=== PATIENT | female | born 1985 | race Caucasian/White ===

== ENCOUNTER 2024-09-13 09:24 | Outpatient (AMB) | payer MEDICAID, SELFPAY ==
--- NOTE | 2024-09-13 09:26 | AMB.OBINITIA ---
Vital Signs 09/13/24 09:50 Height 1.59 m Height Method Stated Weight 82.667 kg Weight Measurement Method Standing Scale BMI 32.5 BP 120/78 Blood Pressure Source Automatic Cuff Blood Pressure Location Left Upper Arm Position Sitting Respiration 18 Pulse 81 Pulse Source Monitor Temp 97.2 F Temp Source Oral Pulse Oximetry (%) 99 Oxygen Delivery Method Room Air Allergies/Home Meds Allergies & Medications Allergies No Known Allergies Allergy (Unknown, Verified 09/13/24 09:52) Medication Reconciliation prenat.vits,rohan,iem-mktm-vqztr 1 tab PO QDAY 01/02/21 [History Confirmed 09/13/24] vitamins with calcium no.72-iron 29 mg-folic acid 1 mg tablet ( Plus) 1 tab PO QAM 90 days #90 tabs 09/16/24 [Rx] Intake Visit Data Collection New Patient or Established: New Patient not seen in past 3 years at [facility] (considered New) Reason for Visit:: confirmation Seen by Clinical Staff ONLY (RN/MA): No Tipping Machine Operator Automatic Required: Yes Tipping Machine Operator Automatic's name/title: ANDRE BERMUDEZ / DENTAL CERAMIST Do You Feel Safe at Home: Yes Authorities Contacted: N/A PCP or OBGYN visit in last 3 months: No Hx Now: Yes Are you currently on any form of Control: No Last menstrual period: 07/08/24 Pain Present Currently: No Pain Scale Used: Mccarthy-Peng/Numerical Pain scale:: 0 Smoking Status Smoking Status: Never smoker Questionnaires Covid-19 Vaccine Questionnaire Has patient been vacinated for Covid-19 Have you been vacinated for Covid-19: No PHQ-9 PHQ-2 Over the last 2 weeks, how often have you been bothered by any of the following problems? 1. Little interest or pleasure in doing things: not at all 2. Feeling down, depressed, or hopeless: not at all Total score: 0 PHQ-9 3. Trouble falling or staying asleep, or sleeping too much: Not at all 4. Feeling tired or having little energy: Not at all 5. Poor appetite or overeating: Not at all 6. Feeling bad about yourself - or that you are a failure or have let yourself or your family down: Not at all 7. Trouble concentrating on things, such as reading the newspaper or watching television: Not at all 8. Moving or speaking so slowly that other people could have noticed? - Or the opposite - being so fidgety or restless that you have been moving around a lot more than usual: not at all 9. Thoughts that you would be better off or of hurting yourself in some way: Not at all Total score: 0 If you checked off any problems, how difficult have these problems made it for you to do your work, take care of things at home, or get along with other people?: not difficult at all Source: Developed by Drs. Spike Rogers, Nancy Rogers, Corbin Bean and colleagues, with an educational robert from [employer]. Depression screen completed yes Social History Living Situation History Marital Status: Lives With: Family Housing: House Tobacco History Smoking Status: Never smoker Alcohol History Alcohol Intake: Never Domestic Abuse History Do You Feel Safe at Home: Yes Past Medical History Past Medical History Have you ever been diagnosed with any of the following: History of Present Illness HPI Narrative Nathalie Elizabeth presents for her first visit. She reports her last menstrual period was on June 07, placing her at approximately 14 weeks gestation. This is her fifth , with four previous vaginal deliveries and no history of miscarriages. The patient denies experiencing any nausea, vomiting, bleeding, or spotting during this . She has not reported any other symptoms or concerns related to her current . Mrs. Elizabeth's previous pregnancies were uncomplicated, resulting in vaginal deliveries. Obstetric History - GTPAL: G5 T4 L4 - Current : - Gestational age: Approximately 14 weeks based on last menstrual period in May - No current complaints of nausea, vomiting, or bleeding - history: - 4 previous vaginal deliveries, all resulting in living children Medications and Supplements - vitamins Social History - Children: Patient has 4 children Review of Systems Gastrointestinal: Negative for nausea, vomiting. Genitourinary: Negative for bleeding, spotting. OB Ultrasound OB Ultrasound Ultrasound technique: transabdominal Gestational sac assessment: Presence, location, size, shape: Bedside ultrasound: Gestational sac visualized, no parts seen OB Initial Visit OB Flowsheet OB Flowsheet Initial Weight: Not Recorded Date <del>?</del> EGA Weight Edema CTX Effacement BP Fundal ht Pres Dilation Effacement Station Visit Note Alb Glu FHR Mov 09/13/24 <del>?</del> 14w 0d 82.667 kg 120/78 Nathalie Elizabeth, , at approximately 14 weeks gestation by LMP 06/07/2024, presents for initial visit. No N/V/B. No KAISER/VS, Epig/RUQ pain. Reports no current symptoms or complications. Denies nausea, vomiting, spotting, or bleeding. Obstetric history notable for 4 prior uncomplicated vaginal deliveries, all resulting in living children. Currently taking vitamins. Bedside ultrasound: Gestational sac visualized; parts not seen. ? Assessment & Plan: Nathalie Elizabeth is a at approximately 14w0d gestation presenting for new OB visit. Bedside ultrasound concerning for intrauterine of uncertain viability. Intrauterine of uncertain viability ?Refer for comprehensive OB ultrasound with possible transvaginal imaging ?Defer routine OB labs pending ultrasound findings ?Continue vitamins ?Follow up after ultrasound to discuss results and determine further management 145 Menstrual History Menstrual reliability: definite Flow: normal Menstrual regularity: regular Monthly: Yes Age at menarche: 12 On control pills at conception: No OB History : 5 Para: 4 Hx # Pregnancies: 0 Hx Total # of Abortions (Spontaneous & Elective): 0 # of Living Children: 0 Delivery History 1st : Child's name: NA date: 12/11/06 sex: male Delivery type: vaginal History of depression before or after : No 2nd : Child's name: NA date: 04/17/08 sex: female Delivery type: vaginal History of depression before or after : No 3rd : Child's name: NA date: 08/06/14 sex: female Delivery type: vaginal History of depression before or after : No 4th : Child's name: NA date: 02/09/21 sex: female Delivery type: vaginal History of depression before or after : No Infection History & Risk Evaluation History of STDs: none HIV risk evaluation: low risk Hepatitis B risk evaluation: low risk Patient or partner has history of Genital Herpes: No Varicella/chicken pox status: immunized Genetic Screening & History Genetic Screening/Teratology Counseling - Includes patient, baby's father, or anyone in either family with: 1. Patient's age 35 years or older as of estimated date of delivery: No 2. Thalassemia (Hungarian, Chinese, Mediterranean, or Background); MCV less than 80: No 3. Neural Tube Defect (Meningomyelocele, Spina Bifida, or Anencephaly): No 4. Congenital Heart Defect: No 5. Down Syndrome: No 6. Asif-Sachs (Ashkenazi Latter Day, Cajun, Tamazight [place]): No 7. Annelise Disease (Ashkenazi Latter Day): No 8. Familial Dysautonomia (Ashkenazi Latter Day): No 9. Sickle Cell Disease or Trait (): No 10. Hemophilia or other blood disorders: No 11. Muscular Dystrophy: No 12. Cystic Fibrosis: No 13. Luis Fernando's Chorea: No 14. Mental Retardation/Autism: No 15. Other inherited genetic or chromosomal disorder: No 16. Maternal Metabolic Disorder (EG,TYPE 1 Diabetes, PKU): No 17. Patient or baby's father had a child with defects not listed above: No 18. Recurrent loss or a stillbirth: No 19. Medications (including supplements, vitamins, herbs or otc drugs)/illicit/recreational drugs/alcohol since last menstrual period: No 20. Any other: No Infection History 1. Live with someone with TB or exposed to TB: No 2. Rash or viral illness since last menstrual period: No 3. Hepatitis B,C: No Other (see comments) Source: [employer] Assessment & Plan Diagnosis / Problem List (1) Advanced maternal age (AMA) in : Status: Acute Plan Nathalie Elizabeth, , presents for initial visit with last menstrual period reported as May, estimated gestational age 14 weeks. Intrauterine of uncertain viability Assessment: Patient reports last menstrual period in May, consistent with 14 weeks gestation. However, bedside ultrasound revealed a gestational sac without visible parts. This discrepancy raises concern for potential complications such as missed or early loss. A more detailed ultrasound examination is necessary to confirm gestational age and assess viability. Plan: - Refer for comprehensive obstetric ultrasound, including possible transvaginal imaging for better visualization - Defer blood tests pending ultrasound results - Continue vitamins - Follow up after ultrasound to discuss results and plan further management Addendum: Patient was given ORDERS DUE TO NONVISUALIZATION OF GESTATIONAL SAC NOTED ABOVE Office Procedures OB Clinic LOC & Office Proc's Nursing/Assessment Patient Status: Established Patient OB Clinic Nursing Assessment: BP Monitoring, Medication Reconciliation, Update PMH in EMR and Vital Signs OB Clinic Coordination of Care: Consent,records obtained, informed consent, Education Simp Pt/Fam, Lab and Imaging orders and Staff clarify orders Special Needs: Heart tones Established Patient Charge Established Patient Point Assignment: 120 Established Patient Point Charge: EP Level 4 (120-155) Bedside Ultrasounds US Transabdominal <14 weeks at bedside: Yes
[2024-09-13 09:50] VITALS: BP 120/78; PULSE 81; RESP 18; TEMP 36.2; O2SAT 99; BMI 32.5
== END 2024-09-13 10:25 | disposition home or self-care (01) ==
LOC: HODSOBC 09:24
PROVIDERS: PCP Family Medicine; Referring Provider Family Medicine; Supervising Provider Obstetrics & Gynecology; Visit Provider Obstetrics & Gynecology
DX: O09.522 Supervision of elderly multigravida, second trimester (principal); Z3A.14 14 weeks gestation of pregnancy
CPT/HCPCS: 76801; 99214; G0463

== ENCOUNTER → 2024-09-16 | Outpatient (CLI) | payer MEDICAID, SELFPAY ==
--- NOTE | 2024-09-16 09:59 | XR_ITS ---
Examination: Complete OB ultrasound greater than 14 weeks Date and time of exam: September 16, 2024 1017 hours INDICATIONS: Unknown size and dates Findings: Viable intrauterine single fetus with single amniotic sac presentation variable Cardiac motion 155 BPM Placenta fundal grade 1 Umbilical cord insertion seen Amniotic fluid index 7 cm Cervix 5.0 cm Right ovary 2.8 cm arterial flow Left ovary 3.7 cm arterial flow. Composite estimated gestational age based on BPD, head circumference, abdominal circumference, femur length is 15 weeks 0 days Estimated weight 118 g. Survey of intracranial anatomy, spinal anatomy, abdominal anatomy, four-chamber heart performed with no abnormalities identified. Impression: Viable intrauterine gestation variable presentation Estimated gestational age 15 weeks 0 days.
== END | disposition home or self-care (01) ==
PROVIDERS: PCP Family Medicine; Referring Provider Obstetrics & Gynecology; Visit Provider Obstetrics & Gynecology
DX: O20.0 Threatened abortion (principal); Z3A.15 15 weeks gestation of pregnancy
CPT/HCPCS: 76805

== ENCOUNTER 2024-09-27 08:26 | Outpatient (AMB) | payer MEDICAID, SELFPAY ==
[2024-09-27 08:37] VITALS: BP 113/77; PULSE 77; RESP 14; TEMP 36.4; O2SAT 98; BMI 33.3
--- NOTE | 2024-09-27 08:37 | AMB.OBVISIT ---
Vital Signs 09/27/24 08:37 Height 1.59 m Height Method Stated Weight 84.085 kg Weight Measurement Method Standing Scale BMI 33.3 BP 113/77 Blood Pressure Source Automatic Cuff Blood Pressure Location Left Upper Arm Position Sitting Respiration 14 Pulse 77 Pulse Source Monitor Temp 97.6 F Temp Source Oral Pulse Oximetry (%) 98 Oxygen Delivery Method Room Air Allergies/Home Meds Allergies & Medications Allergies No Known Allergies Allergy (Unknown, Verified 09/27/24 08:38) Medication Reconciliation vitamins with calcium no.72-iron 29 mg-folic acid 1 mg tablet ( Plus) 1 tab PO QAM 90 days #90 tabs 09/16/24 [Rx Confirmed 09/27/24] Intake Visit Data Collection New Patient or Established: Established Patient (seen at [facility] within 3 years) Reason for Visit:: - Follow-up of ultrasound Seen by Clinical Staff ONLY (RN/MA): No Electrical Contacts Adjuster Required: Yes Electrical Contacts Adjuster's name/title: Eve Little Do You Feel Safe at Home: Yes Authorities Contacted: N/A PCP or OBGYN visit in last 3 months: Yes Hx Now: Yes Are you currently on any form of Control: No Pain Present Currently: No Pain Scale Used: Mccarthy-Peng/Numerical Pain scale:: 0 Smoking Status Smoking Status: Never smoker Questionnaires Covid-19 Vaccine Questionnaire Has patient been vacinated for Covid-19 Have you been vacinated for Covid-19: Yes PHQ-9 PHQ-2 Over the last 2 weeks, how often have you been bothered by any of the following problems? 1. Little interest or pleasure in doing things: not at all 2. Feeling down, depressed, or hopeless: not at all Total score: 0 PHQ-9 3. Trouble falling or staying asleep, or sleeping too much: Not at all 4. Feeling tired or having little energy: Not at all 5. Poor appetite or overeating: Not at all 6. Feeling bad about yourself - or that you are a failure or have let yourself or your family down: Not at all 7. Trouble concentrating on things, such as reading the newspaper or watching television: Not at all 8. Moving or speaking so slowly that other people could have noticed? - Or the opposite - being so fidgety or restless that you have been moving around a lot more than usual: not at all 9. Thoughts that you would be better off or of hurting yourself in some way: Not at all Total score: 0 Source: Developed by Drs. Spike Rogers, Nancy Rogers, Corbin Bean and colleagues, with an educational robert from [employer]. Depression screen completed yes Social History Living Situation History Lives With: Family Housing: House Tobacco History Smoking Status: Never smoker Alcohol History Alcohol Intake: Never Domestic Abuse History Do You Feel Safe at Home: Yes Past Medical History Past Medical History Have you ever been diagnosed with any of the following: History of Present Illness HPI Narrative - Nathalie Tomlinson is a 39-year-old 5 para 4 patient presenting for follow-up of an ultrasound performed on 09/16/2024. - She had an initial OB visit where visualization was poor, necessitating a referral for an ultrasound in the radiology department. - Patient denies any other specific complaints or symptoms. No contractions/ LOF/VB No KAISER/VC/RUQ/Epig pain Care OB Visit Log OB Flowsheet Initial Weight: Not Recorded Date <del>?</del> EGA Weight Edema CTX Effacement BP Fundal ht Pres Dilation Effacement Station Visit Note Alb Glu FHR Mov 09/13/24 <del>?</del> 14w 0d 82.667 kg 120/78 Nathalie Elizabeth, , at approximately 14 weeks gestation by LMP 06/07/2024, presents for initial visit. No N/V/B. No KAISER/VS, Epig/RUQ pain. Reports no current symptoms or complications. Denies nausea, vomiting, spotting, or bleeding. Obstetric history notable for 4 prior uncomplicated vaginal deliveries, all resulting in living children. Currently taking vitamins. Bedside ultrasound: Gestational sac visualized; parts not seen. ? Assessment & Plan: Nathalie Elizabeht is a at approximately 14w0d gestation presenting for new OB visit. Bedside ultrasound concerning for intrauterine of uncertain viability. Intrauterine of uncertain viability ?Refer for comprehensive OB ultrasound with possible transvaginal imaging ?Defer routine OB labs pending ultrasound findings ?Continue vitamins ?Follow up after ultrasound to discuss results and determine further management 145 09/27/24 <del>?</del> 16w 0d 84.085 kg 113/77 Nathalie Tomlinson, a 39-year-old at approximately 15 weeks gestation, presents for follow-up after a radiology department ultrasound performed on 09/16/2024. Previous poor visualization prompted the referral. She denies any current complaints, including contractions, headaches, visual changes, or abdominal pain. The ultrasound confirmed a viable single intrauterine with normal cardiac activity (FHR 155 bpm), ALVAREZ of 7, fundal placenta (grade 1), cervix measuring 5 cm, and both ovaries visualized with axial flow. Estimated weight was 118 grams. Plan: Order comprehensive labs, including genetic screening and gender determination Prescribe -safe allergy medication for allergic rhinitis Schedule next routine follow-up in one month Order routine ultrasound at [facility] Patient to return today for blood draw and lab collection 155 active STEFANIA Calculator Estimated Delivery Date Method Current WG Current Estimate 03/14/25 LMP (Certain) 16w 2d Exam General General Appearance: alert, in no apparent distress and healthy appearing Head Head exam: atraumatic Neck Neck exam: Present normal inspection and trachea midline Chest Chest inspection: Present normal inspection and symmetric chest wall rise External exam: Present normal external exam; Absent tenderness Neuro Neurological exam: Present oriented X3 Psych Psychiatric exam: Present normal affect and normal mood Assessment & Plan Diagnosis / Problem List (1) Supervision of high risk , unspecified, first trimester: Status: Acute (2) Advanced maternal age (AMA) in : Status: Acute Plan Problem List - , single intrauterine - Allergic rhinitis Assessment - Viable single fetus at 15 weeks gestation based on ultrasound measurements - Normal cardiac activity with heart rate of 155 bpm - Single amniotic sac with ALVAREZ of 7 - Fundal placenta, grade 1 - Cervix measuring 5 cm - Right ovary 2.8 cm with axial flow - Left ovary 3.7 cm with axial flow - Estimated weight 118 grams Plan - Perform all labs, including genetics test - Prescribe allergy medication (noted as safe for ) - Schedule follow-up appointment in one month - Order routine ultrasound at [facility] - Patient to return for blood draw today for lab tests, including gender determination Educated the patient on labor signs, including regular contractions, lower back pain, and changes in vaginal discharge. Advised avoiding heavy lifting and getting adequate rest. Instructed to contact the office immediately if any signs occur. Discussed the importance of a balanced diet rich in folic acid, iron, and calcium, and provided a list of recommended and to-avoid foods. Emphasized avoiding high-sugar foods to reduce gestational diabetes risk. Encouraged hydration and frequent, small meals for energy.. Office Procedures OB Clinic LOC & Office Proc's Nursing/Assessment Patient Status: Established Patient OB Clinic Nursing Assessment: Medication Reconciliation, Update PMH in EMR and Vital Signs OB Clinic Coordination of Care: AMA, Complex Care and Chronic Disease 1-5, Consent,records obtained, informed consent, Education Simp Pt/Fam, Lab and Imaging orders, Results/Orders obtained and Staff clarify orders Special Needs: Heart tones Established Patient Charge Established Patient Point Assignment: 155 Established Patient Point Charge: EP Level 4 (120-155)
== END 2024-09-27 08:55 | disposition home or self-care (01) ==
LOC: HODSOBC 08:26
PROVIDERS: PCP Family Medicine; Referring Provider Family Medicine; Supervising Provider Obstetrics & Gynecology; Visit Provider Obstetrics & Gynecology
DX: O09.522 Supervision of elderly multigravida, second trimester (principal); Z3A.16 16 weeks gestation of pregnancy; O09.892 Supervision of other high risk pregnancies, second trimester; O99.512 Diseases of the respiratory system complicating pregnancy, second trimester; J30.9 Allergic rhinitis, unspecified
CPT/HCPCS: 99214; G0463

== ENCOUNTER 2024-10-25 10:03 | Outpatient (AMB) | payer MEDICAID, SELFPAY ==
--- NOTE | 2024-10-25 10:08 | AMB.OBVISIT ---
Vital Signs 10/25/24 10:09 Height 1.59 m Height Method Stated Weight 88.904 kg Weight Measurement Method Standing Scale BMI 35.2 BP 114/75 Blood Pressure Source Automatic Cuff Blood Pressure Location Right Upper Arm Position Sitting Respiration 16 Pulse 88 Pulse Source Monitor Temp 97.8 F Temp Source Oral Pulse Oximetry (%) 97 Oxygen Delivery Method Room Air Allergies/Home Meds Allergies & Medications Allergies No Known Allergies Allergy (Unknown, Verified 10/25/24 10:11) Medication Reconciliation vitamins with calcium no.72-iron 29 mg-folic acid 1 mg tablet ( Plus) 1 tab PO QAM 90 days #90 tabs 09/16/24 [Rx Confirmed 10/25/24] Intake Visit Data Collection New Patient or Established: Established Patient (seen at [facility] within 3 years) Reason for Visit:: CARE Seen by Clinical Staff ONLY (RN/MA): No General Scrap Worker Required: Yes General Scrap Worker's name/title: ANDRE BERMUDEZ Do You Feel Safe at Home: Yes Authorities Contacted: N/A PCP or OBGYN visit in last 3 months: Yes Hx Now: Yes Are you currently on any form of Control: No Pain Present Currently: No Pain Scale Used: Mccarthy-Peng/Numerical Pain scale:: 0 Smoking Status Smoking Status: Never smoker Questionnaires Covid-19 Vaccine Questionnaire Has patient been vacinated for Covid-19 Have you been vacinated for Covid-19: Yes PHQ-9 PHQ-2 Over the last 2 weeks, how often have you been bothered by any of the following problems? 1. Little interest or pleasure in doing things: not at all 2. Feeling down, depressed, or hopeless: not at all Total score: 0 PHQ-9 3. Trouble falling or staying asleep, or sleeping too much: Not at all 4. Feeling tired or having little energy: Not at all 5. Poor appetite or overeating: Not at all 6. Feeling bad about yourself - or that you are a failure or have let yourself or your family down: Not at all 7. Trouble concentrating on things, such as reading the newspaper or watching television: Not at all 8. Moving or speaking so slowly that other people could have noticed? - Or the opposite - being so fidgety or restless that you have been moving around a lot more than usual: not at all 9. Thoughts that you would be better off or of hurting yourself in some way: Not at all Total score: 0 Source: Developed by Drs. Spike Rogers, Nancy Rogers, Corbin Bean and colleagues, with an educational robert from [employer]. Depression screen completed yes Social History Living Situation History Lives With: Family Housing: House Tobacco History Smoking Status: Never smoker Alcohol History Alcohol Intake: Never Domestic Abuse History Do You Feel Safe at Home: Yes History of Present Illness HPI Narrative Nathalie Tomlinson, , presents for routine visit at 20 weeks and 0 days gestation. No contractions, LOF, VB and reports good FM. Denies KAISER, VC, and epigastric pain. - Nathalie Tomlinson is a 39-year-old 5 para 4 presenting for a visit at 20 weeks and 0 days gestation. - Patient has a history of gestational diabetes in her last . - She reports experiencing some bleeding recently: - Occurred approximately one week ago (around October 18, 2024) - Described as a little bit of bleeding here and there - An ultrasound was performed at that time - Patient is awaiting an [facility] ultrasound with Dr. Lee in [place]. - No other specific complaints or symptoms reported during this visit. Care OB Visit Log OB Flowsheet Initial Weight: Not Recorded Date <del>?</del> EGA Weight BP Alb Glu CTX Pres Fundal ht FHR Mov Dilation Station Effacement Hx Notes Visit Note 09/13/24 <del>?</del> 14w 0d 82.667 kg 120/78 145 Nathalie Elizabeth, , at approximately 14 weeks gestation by LMP 06/07/2024, presents for initial visit. No N/V/B. No KAISER/VS, Epig/RUQ pain. Reports no current symptoms or complications. Denies nausea, vomiting, spotting, or bleeding. Obstetric history notable for 4 prior uncomplicated vaginal deliveries, all resulting in living children. Currently taking vitamins. Bedside ultrasound: Gestational sac visualized; parts not seen. ? Assessment & Plan: Nathalie Elizabeth is a at approximately 14w0d gestation presenting for new OB visit. Bedside ultrasound concerning for intrauterine of uncertain viability. Intrauterine of uncertain viability ?Refer for comprehensive OB ultrasound with possible transvaginal imaging ?Defer routine OB labs pending ultrasound findings ?Continue vitamins ?Follow up after ultrasound to discuss results and determine further management 09/27/24 <del>?</del> 16w 0d 84.085 kg 113/77 155 active Nathalie Tomlinson, a 39-year-old at approximately 15 weeks gestation, presents for follow-up after a radiology department ultrasound performed on 09/16/2024. Previous poor visualization prompted the referral. She denies any current complaints, including contractions, headaches, visual changes, or abdominal pain. The ultrasound confirmed a viable single intrauterine with normal cardiac activity (FHR 155 bpm), ALVAREZ of 7, fundal placenta (grade 1), cervix measuring 5 cm, and both ovaries visualized with axial flow. Estimated weight was 118 grams. Plan: Order comprehensive labs, including genetic screening and gender determination Prescribe -safe allergy medication for allergic rhinitis Schedule next routine follow-up in one month Order routine ultrasound at [facility] in [place] Patient to return today for blood draw and lab collection 10/25/24 <del>?</del> 20w 0d 88.904 kg 114/75 at 20w0d, presents for routine care. Reports recent light bleeding ~1 week ago, no recurrence since. No CTX/LOF/VB today; good FM. Denies KAISER/VC/epigastric pain. PMH notable for GDM in prior . Awaiting MFM scan with Dr. Lee in [place]. FHT 143?147 bpm today, WNL. Plan: Ordered 1-hr glucose test (patient to fast 8 hrs), advised pelvic rest (no intercourse, no heavy lifting), increase hydration. Follow up in 4 weeks. Will review MFM results once available. Counseled on labor and preeclampsia warning signs; encouraged movement monitoring and routine care adherence. STEFANIA Calculator Estimated Delivery Date Method Current WG Current Estimate 03/14/25 LMP (Certain) 22w 1d Exam General General Appearance: alert, in no apparent distress and healthy appearing Head Head exam: atraumatic Neck Neck exam: Present normal inspection and trachea midline Chest Chest inspection: Present normal inspection and symmetric chest wall rise External exam: Present normal external exam; Absent tenderness Neuro Neurological exam: Present oriented X3 Psych Psychiatric exam: Present normal affect and normal mood Office Procedures OB Clinic LOC & Office Proc's Nursing/Assessment Patient Status: Established Patient OB Clinic Nursing Assessment: Medication Reconciliation, Update PMH in EMR and Vital Signs OB Clinic Coordination of Care: Complex Care and Chronic Disease 1-5, Consent,records obtained, informed consent, Education Simp Pt/Fam, Lab and Imaging orders, Results/Orders obtained and Staff clarify orders Special Needs: Heart tones Established Patient Charge Established Patient Point Assignment: 135 Established Patient Point Charge: EP Level 4 (120-155) Assessment & Plan Diagnosis / Problem List (1) Supervision of high risk , unspecified, second trimester: Status: Acute (2) Advanced maternal age (AMA) in : Status: Acute Plan Problem List - , 20 weeks and 0 days - Gestational diabetes in previous - Vaginal bleeding in Assessment 39-year-old at 20 weeks 0 days gestation presenting for routine visit. Patient has a history of gestational diabetes in her last . heart rate auscultated at 143-147 bpm, which is within normal range. Patient reports recent episode of vaginal bleeding at 27 weeks, but current status appears stable based on heart rate. Awaiting comprehensive assessment via MFM ultrasound. Glucose tolerance test ordered to screen for gestational diabetes given prior history. Plan - Await MFM ultrasound with Dr. Lee - Complete lab order for diabetes test (patient to fast for 8 hours before test) - Follow precautions: rest, no heavy lifting, no intercourse - Increase water intake - Return for follow-up visit in 4 weeks - Complete diabetes test before next appointment 1. Progress Reviewed gestational age, growth, and heart rate. Planned frequent visits (every 2 weeks until 36 weeks, then weekly). 2. Instructed patient to monitor movements and report decreases immediately. 3. Testing Counseled on routine third-trimester labs per guidelines. Discussed potential need for ultrasound or monitoring based on risk factors. 4. Preeclampsia Precaution Educated on preeclampsia signs: severe headache, vision changes, right upper quadrant pain, sudden swelling. Advised urgent reporting of symptoms and discussed blood pressure monitoring if high risk. 5. Labor Precautions Reviewed labor signs: regular contractions, pelvic pressure, back pain, bleeding, or fluid leakage. Instructed to seek immediate care for these symptoms. 6. Lifestyle and Delivery Preparation Reinforced vitamins, nutrition, and safe activity. Discussed plan, pain management, and . Advised on labor preparation (e.g., hospital bag) and expectations. 7. Psychosocial Support Assessed emotional well-being and offered resources for mental health or parenting support.
[2024-10-25 10:09] VITALS: BP 114/75; PULSE 88; RESP 16; TEMP 36.6; O2SAT 97; BMI 35.2
== END 2024-10-25 10:35 | disposition home or self-care (01) ==
LOC: HODSOBC 10:03
PROVIDERS: PCP Family Medicine; Referring Provider Family Medicine; Supervising Provider Obstetrics & Gynecology; Visit Provider Obstetrics & Gynecology
DX: O09.522 Supervision of elderly multigravida, second trimester (principal); Z3A.20 20 weeks gestation of pregnancy; O09.292 Supervision of pregnancy with other poor reproductive or obstetric history, second trimester; Z86.32 Personal history of gestational diabetes
CPT/HCPCS: 99214; G0463

== ENCOUNTER 2024-11-22 10:22 | Outpatient (AMB) | payer MEDICAID, SELFPAY ==
[2024-11-22 10:45] VITALS: BP 117/78; PULSE 88; RESP 16; TEMP 36.4; O2SAT 97; BMI 35.7
--- NOTE | 2024-11-22 10:45 | OBCLNT_ITS ---
Vital Signs 11/22/24 10:45 Height 1.59 m Height Method Stated Weight 90.435 kg Weight Measurement Method Standing Scale BMI 35.7 BP 117/78 Blood Pressure Source Automatic Cuff Blood Pressure Location Right Upper Arm Position Sitting Respiration 16 Pulse 88 Pulse Source Monitor Temp 97.6 F Temp Source Oral Pulse Oximetry (%) 97 Oxygen Delivery Method Room Air Allergies/Home Meds Allergies & Medications Allergies No Known Allergies Allergy (Unknown, Verified 11/22/24 10:46) Medication Reconciliation vitamins with calcium no.72-iron 29 mg-folic acid 1 mg tablet ( Plus) 1 tab PO QAM 90 days #90 tabs 09/16/24 [Rx Confirmed 11/22/24] blood sugar diagnostic (Blood Glucose Test strips) #100 ea 11/17/24 [Rx Confirmed 11/22/24] blood-glucose meter #1 ea 11/17/24 [Rx Confirmed 11/22/24] lancets #100 ea 11/17/24 [Rx Confirmed 11/22/24] Intake Visit Data Collection New Patient or Established: Established Patient (seen at [facility] within 3 years) Reason for Visit:: CARE Seen by Clinical Staff ONLY (RN/MA): No Entry Level Machine Operator Required: No Do You Feel Safe at Home: Yes Authorities Contacted: N/A PCP or OBGYN visit in last 3 months: Yes Hx Now: Yes Are you currently on any form of Control: No Pain Present Currently: No Pain Scale Used: Mccarthy-Peng/Numerical Pain scale:: 0 Smoking Status Smoking Status: Never smoker Questionnaires Covid-19 Vaccine Questionnaire Has patient been vacinated for Covid-19 Have you been vacinated for Covid-19: No PHQ-9 PHQ-2 Over the last 2 weeks, how often have you been bothered by any of the following problems? 1. Little interest or pleasure in doing things: not at all 2. Feeling down, depressed, or hopeless: not at all Total score: 0 PHQ-9 3. Trouble falling or staying asleep, or sleeping too much: Not at all 4. Feeling tired or having little energy: Not at all 5. Poor appetite or overeating: Not at all 6. Feeling bad about yourself - or that you are a failure or have let yourself or your family down: Not at all 7. Trouble concentrating on things, such as reading the newspaper or watching television: Not at all 8. Moving or speaking so slowly that other people could have noticed? - Or the opposite - being so fidgety or restless that you have been moving around a lot more than usual: not at all 9. Thoughts that you would be better off or of hurting yourself in some way: Not at all Total score: 0 Source: Developed by Drs. Spike Rogers, Nancy Rogers, Corbin Bean and colleagues, with an educational robert from [employer] Depression screen completed yes Social History Living Situation History Lives With: Family Housing: House Tobacco History Smoking Status: Never smoker Alcohol History Alcohol Intake: Never Domestic Abuse History Do You Feel Safe at Home: Yes History of Present Illness HPI Narrative Nathalie Best, , presents for routine visit at 24w-0d weeks gestation. Patient has gestational diabetes. Denies KAISER, VC, and epigastric pain. - Sabi is a 39-year-old presenting for a visit and review of glucose test results: - One-hour glucose tolerance test was elevated at 176. - Three-hour glucose tolerance test showed 2 out of 4 high values (1-hour and 2-hour). - Patient was provided with a glucometer and has been monitoring blood glucose levels. - Recent blood glucose reading was 126 one hour after eating. - Patient reports good movement. - One-hour glucose tolerance test: 176 mg/dL (normal up to 139 mg/dL) - Three-hour glucose tolerance test: - Fastin mg/dL - 1 hour: 183 mg/dL - 2 hours: 164 mg/dL - 3 hours: 118 mg/dL - Home glucose monitoring: - 1 hour post-prandial: 126 mg/dL Care OB Visit Log OB Flowsheet Initial Weight: Not Recorded Date -?-?-?-?-?-?-?-?-?-?-?-?- EGA Weight BP Alb Glu CTX Pres Fundal ht FHR Mov Dilation Station Effacement Hx Notes Visit Note 09/13/24 -?-?-?-?-?-?-?-?-?-?-?-?- 14w 0d 82.667 kg 120/78 145 Nathalie Elizabeth, , at approximately 14 weeks gestation by LMP 06/07/2024, presents for initial visit. No N/V/B. No KAISER/VS, Epig/RUQ pain. Reports no current symptoms or complicat ions. Denies nausea, vomiting, spotting, or bleeding. Obstetric history notable for 4 prior un complicated vaginal deliveries, all resulting in living children. Currently taking vitamins. Bedside ultrasound: Gestational sac visu alized; parts not seen. ? Assessment & Plan: Nathalie Elizabeth is a at approximate ly 14w0d gestation presenting for new OB visit. Bedside ultrasound concerning for intrauterine of uncertain viability. Intrauterine of uncertain viab ility ?Refer for comprehensive OB ultrasound w ith possible transvaginal imaging ?Defer routine OB labs pending ultrasoun d findings ?Continue vitamins ?Follow up after ultrasound to discuss results and determine further management 09/27/24 -?-?-?-?-?-?-?-?-?-?-?-?- 16w 0d 84.085 kg 113/77 155 active Nathalie Tomlinson, a 39-year-old at approximately 15 weeks gestation, presents for follow-up after a radiology department ultrasound performed on 09/16/2024. Previous poor visualization prompted the referral. She denies any current complaints, including contractions, headaches, visual changes, or abdominal pain. The ultrasound confirmed a viable single intrauterine with normal cardiac activity (FHR 155 bpm), ALVAREZ of 7, fundal placenta (grade 1), cervix measuring 5 cm, and both ovaries visualized with axial flow. Estimated weight was 118 grams. Plan: Order comprehensive labs, incl uding genetic screening and gender determination Prescribe -safe allergy medicat ion for allergic rhinitis Schedule next routine follow-up in one month Order routine ultrasound at [facility] in [place] Patient to return today for blood draw and lab collection 10/25/24 -?-?-?-?-?-?-?-?-?-?-?-?- 20w 0d 88.904 kg 114/75 at 20w0d, presents for routine care. Reports recent light bleeding ~1 week ago, no recurrence since. No CTX/LOF/VB today; good FM. Denies KAISER/VC/epigastric pain. PMH notable for GDM in prior . Awaiting MFM scan with Dr. Lee in [place]. FHT 143?147 bpm today, WNL. Plan: Ordered 1-hr glucose test (patient to fast 8 hrs), advised pelvic rest (no intercourse, no heavy lifting), increase hydration. Follow up in 4 weeks. Will review MFM results once available. Counseled on labor and preeclampsia warning signs; encouraged movement monitoring and routine care adherence. 11/22/24 -?-?-?-?-?-?-?-?-?-?-?-?- 24w 0d 90.435 kg 117/78 absent cephalic 24 149 active No CTX/LOF/VB, reports good FM. GDM dx with 1hr GTT 176, 3hr GTT with 1hr 183, 2hr 164. Home glucose 126 post-prandial. FHR 149. Continue glucometer use, provide diet instructions, no meds needed. Review logs at next visit. STEFANIA Calculator Estimated Delivery Date Method Current WG Current Estimate 03/14/25 LMP (Certain) 24w 0d Exam General General Appearance: alert, in no apparent distress and healthy appearing Head Head exam: atraumatic Neck Neck exam: Present normal inspection and trachea midline Chest Chest inspection: Present normal inspection and symmetric chest wall rise External exam: Present normal external exam; Absent tenderness Neuro Neurological exam: Present oriented X3 Psych Psychiatric exam: Present normal affect and normal mood Office Procedures OB Clinic LOC & Office Proc's Nursing/Assessment Patient Status: Established Patient OB Clinic Nursing Assessment: Medication Reconciliation, Update PMH in EMR and Vital Signs OB Clinic Coordination of Care: Complex Care and Chronic Disease 1-5, Consent,records obtained, informed consent, Education Simp Pt/Fam, Results/Orders obtained and Staff clarify orders Special Needs: Heart tones Established Patient Charge Established Patient Point Assignment: 120 Established Patient Point Charge: EP Level 4 (120-155) Assessment & Plan Diagnosis / Problem List (1) Gestational diabetes: Status: Acute (2) Supervision of high risk , unspecified, second trimester: Status: Acute (3) Advanced maternal age (AMA) in : Status: Acute Plan Problem List - Gestational diabetes mellitus Assessment Gestational diabetes mellitus diagnosed based on elevated glucose tolerance test results. One-hour glucose tolerance test was 176 mg/dL (normal up to 139 mg/dL). Three-hour glucose tolerance test results were 92, 183, 164, and 118 mg/dL, with two elevated values confirming the diagnosis. Patient has been monitoring blood glucose levels at home with a glucometer, with one reported value of 126 mg/dL one hour after eating, which is within acceptable range. assessment shows normal heart rate of 149 bpm. Plan - Continue monitoring blood glucose levels with provided glucometer - Follow dietary guidance for gestational diabetes (patient to be provided with printed instructions) - No medication prescribed at this time due to satisfactory blood glucose readings - Review blood glucose logs at next visit 1. Progress Reviewed gestational age, growth, and heart rate. Planned frequent visits (every 2 weeks until 36 weeks, then weekly). 2. Instructed patient to monitor movements and report decreases immediately. 3. Testing Counseled on routine third-trimester labs per guidelines. Discussed potential need for ultrasound or monitoring based on risk factors. 4. Preeclampsia Precaution Educated on preeclampsia signs: severe headache, vision changes, right upper quadrant pain, sudden swelling. Advised urgent reporting of symptoms and discussed blood pressure monitoring if high risk. 5. Labor Precautions Reviewed labor signs: regular contractions, pelvic pressure, back pain, bleeding, or fluid leakage. Instructed to seek immediate care for these symptoms. 6. Lifestyle and Delivery Preparation Reinforced vitamins, nutrition, and safe activity. Discussed plan, pain management, and . Advised on labor preparation (e.g., hospital bag) and expectations. 7. Psychosocial Support Assessed emotional well-being and offered resources for mental health or parenting support.
== END 2024-11-22 11:06 | disposition home or self-care (01) ==
LOC: HODSOBC 10:22
PROVIDERS: PCP Family Medicine; Referring Provider Family Medicine; Supervising Provider Obstetrics & Gynecology; Visit Provider Obstetrics & Gynecology
DX: O09.522 Supervision of elderly multigravida, second trimester (principal); O09.892 Supervision of other high risk pregnancies, second trimester; O24.410 Gestational diabetes mellitus in pregnancy, diet controlled; Z3A.24 24 weeks gestation of pregnancy
CPT/HCPCS: 99214; G0463

== ENCOUNTER 2025-01-02 10:05 | Outpatient (AMB) | payer MEDICAID, SELFPAY ==
[2025-01-02 10:12] VITALS: BP 120/81; PULSE 80; RESP 17; TEMP 36.6; O2SAT 98; BMI 35.7
--- NOTE | 2025-01-02 10:12 | AMB.OBVISIT ---
Vital Signs 01/02/25 10:12 Height 1.59 m Height Method Measured Weight 90.378 kg Weight Measurement Method Standing Scale BMI 35.7 BP 120/81 Blood Pressure Source Automatic Cuff Blood Pressure Location Right Upper Arm Position Sitting Respiration 17 Pulse 80 Pulse Source Monitor Temp 97.8 F Temp Source Temporal Artery Scan Pulse Oximetry (%) 98 Oxygen Delivery Method Room Air Allergies/Home Meds Allergies & Medications Allergies No Known Allergies Allergy (Unknown, Verified 01/02/25 10:13) Medication Reconciliation vitamins with calcium no.72-iron 29 mg-folic acid 1 mg tablet ( Plus) 1 tab PO QAM 90 days #90 tabs 09/16/24 [Rx Confirmed 01/02/25] blood-glucose meter #1 ea 11/17/24 [Rx Confirmed 01/02/25] blood sugar diagnostic (Blood Glucose Test strips) #100 ea 12/16/24 [Rx Confirmed 01/02/25] lancets #100 ea 12/16/24 [Rx Confirmed 01/02/25] Intake Visit Data Collection New Patient or Established: Established Patient (seen at [facility] within 3 years) Reason for Visit:: OBC\SUGAR LOG Consent obtained for Telemed Visit: No Seen by Clinical Staff ONLY (RN/MA): No Certified Ophthalmic Assistant Required: Yes Certified Ophthalmic Assistant's name/title: ANDRE TAPIA Do You Feel Safe at Home: Yes Authorities Contacted: N/A PCP or OBGYN visit in last 3 months: Yes Date of Last PCP or OBGYN visit: 12/20/24 Hx Now: Yes Are you currently on any form of Control: No Pain Present Currently: No Pain Scale Used: Mccarthy-Peng/Numerical Pain scale:: 0 Smoking Status Smoking Status: Never smoker Questionnaires Covid-19 Vaccine Questionnaire Has patient been vacinated for Covid-19 Have you been vacinated for Covid-19: No PHQ-9 PHQ-2 Over the last 2 weeks, how often have you been bothered by any of the following problems? 1. Little interest or pleasure in doing things: not at all PHQ-9 8. Moving or speaking so slowly that other people could have noticed? - Or the opposite - being so fidgety or restless that you have been moving around a lot more than usual: not at all Source: Developed by Drs. Spike Rogers, NancyCorbin Guerrero and colleagues, with an educational robert from [employer]. Social History Living Situation History Lives With: Family Housing: House Tobacco History Smoking Status: Never smoker Alcohol History Alcohol Intake: Never Domestic Abuse History Do You Feel Safe at Home: Yes Care OB Visit Log OB Flowsheet Initial Weight: Not Recorded Date <del>?</del> EGA Weight BP Alb Glu CTX Pres Fundal ht FHR Mov Dilation Station Effacement Hx Notes Visit Note 09/13/24 <del>?</del> 14w 0d 82.667 kg 120/78 145 Nathalie Elizabeth, , at approximately 14 weeks gestation by LMP 06/07/2024, presents for initial visit. No N/V/B. No KAISER/VS, Epig/RUQ pain. Reports no current symptoms or complications. Denies nausea, vomiting, spotting, or bleeding. Obstetric history notable for 4 prior uncomplicated vaginal deliveries, all resulting in living children. Currently taking vitamins. Bedside ultrasound: Gestational sac visualized; parts not seen. ? Assessment & Plan: Nathalie Elizabeth is a at approximately 14w0d gestation presenting for new OB visit. Bedside ultrasound concerning for intrauterine of uncertain viability. Intrauterine of uncertain viability ?Refer for comprehensive OB ultrasound with possible transvaginal imaging ?Defer routine OB labs pending ultrasound findings ?Continue vitamins ?Follow up after ultrasound to discuss results and determine further management 09/27/24 <del>?</del> 16w 0d 84.085 kg 113/77 155 active Nathalie Tomlinson, a 39-year-old at approximately 15 weeks gestation, presents for follow-up after a radiology department ultrasound performed on 09/16/2024. Previous poor visualization prompted the referral. She denies any current complaints, including contractions, headaches, visual changes, or abdominal pain. The ultrasound confirmed a viable single intrauterine with normal cardiac activity (FHR 155 bpm), ALVAREZ of 7, fundal placenta (grade 1), cervix measuring 5 cm, and both ovaries visualized with axial flow. Estimated weight was 118 grams. Plan: Order comprehensive labs, including genetic screening and gender determination Prescribe -safe allergy medication for allergic rhinitis Schedule next routine follow-up in one month Order routine ultrasound at [facility] in [place] Patient to return today for blood draw and lab collection 10/25/24 <del>?</del> 20w 0d 88.904 kg 114/75 at 20w0d, presents for routine care. Reports recent light bleeding ~1 week ago, no recurrence since. No CTX/LOF/VB today; good FM. Denies KAISER/VC/epigastric pain. PMH notable for GDM in prior . Awaiting MFM scan with Dr. Lee in [place]. FHT 143?147 bpm today, WNL. Plan: Ordered 1-hr glucose test (patient to fast 8 hrs), advised pelvic rest (no intercourse, no heavy lifting), increase hydration. Follow up in 4 weeks. Will review MFM results once available. Counseled on labor and preeclampsia warning signs; encouraged movement monitoring and routine care adherence. 11/22/24 <del>?</del> 24w 0d 90.435 kg 117/78 absent cephalic 24 149 active No CTX/LOF/VB, reports good FM. GDM dx with 1hr GTT 176, 3hr GTT with 1hr 183, 2hr 164. Home glucose 126 post-prandial. FHR 149. Continue glucometer use, provide diet instructions, no meds needed. Review logs at next visit. 12/20/24 <del>?</del> 28w 0d 91.626 kg 114/74 absent cephalic 28 151 active no CTX/LOF/VB. fetus active, compliant with GDM diet and monitoring.. no CTX/LOF/VB. fetus active, compliant with GDM diet and monitoring.. sugars at goal 80%, fasting are in range Walk 40 minutes a day. Continue glucose monitoring and working compliance with GDM diet. Increase veggies and proteins. Pay attention movement. Patient has follow-up with MFM in 4 weeks. And return in 2 weeks for OB 01/02/25 <del>?</del> 29w 6d 90.378 kg 120/81 absent cephalic 29 145 active GDM at 29w6d, diet-controlled with normal glucose logs (FBS 90?96), FHR 169?170 bpm, good FM, small umbilical hernia likely from uterine pressure, no CTX. Plan: F/u in 2 wks, reduce glucose checks to fasting and post-largest meal, continue diet control, keep Sept 4 [facility] appt. STEFANIA Calculator Estimated Delivery Date Method Current WG Current Estimate 03/14/25 LMP (Certain) 29w 6d Office Procedures OB Clinic LOC & Office Proc's Nursing/Assessment Patient Status: Established Patient OB Clinic Nursing Assessment: Medication Reconciliation, Update PMH in EMR and Vital Signs OB Clinic Coordination of Care: Complex Care and Chronic Disease 1-5, Consent,records obtained, informed consent, Education Simp Pt/Fam and Results/Orders obtained Special Needs: Heart tones Established Patient Charge Established Patient Point Assignment: 110 Established Patient Point Charge: EP Level 3 (80-115) Assessment & Plan Diagnosis / Problem List (1) Encounter for supervision of high risk in third trimester, antepartum: Status: Acute (2) Gestational diabetes: Status: Acute
== END 2025-01-02 10:28 | disposition home or self-care (01) ==
LOC: HODSOBC 10:05
PROVIDERS: Supervising Provider Obstetrics & Gynecology; Visit Provider Obstetrics & Gynecology
DX: O09.893 Supervision of other high risk pregnancies, third trimester (principal); O24.410 Gestational diabetes mellitus in pregnancy, diet controlled; O09.523 Supervision of elderly multigravida, third trimester; Z3A.29 29 weeks gestation of pregnancy
CPT/HCPCS: 99213; G0463

== ENCOUNTER 2025-01-17 11:01 | Outpatient (AMB) | payer MEDICAID, SELFPAY ==
[2025-01-17 11:39] VITALS: BP 113/75; PULSE 80; RESP 17; TEMP 36.6; O2SAT 97; BMI 35.2
--- NOTE | 2025-01-17 11:39 | OBCLNT_ITS ---
Vital Signs 01/17/25 11:39 Height 1.59 m Height Method Measured Weight 89.018 kg Weight Measurement Method Standing Scale BMI 35.2 BP 113/75 Blood Pressure Source Automatic Cuff Blood Pressure Location Right Upper Arm Position Sitting Respiration 17 Pulse 80 Pulse Source Monitor Temp 97.8 F Temp Source Temporal Artery Scan Pulse Oximetry (%) 97 Oxygen Delivery Method Room Air Allergies/Home Meds Allergies & Medications Allergies No Known Allergies Allergy (Unknown, Verified 01/17/25 11:39) Medication Reconciliation vitamins with calcium no.72-iron 29 mg-folic acid 1 mg tablet ( Plus) 1 tab PO QAM 90 days #90 tabs 09/16/24 [Rx Confirmed 01/17/25] blood-glucose meter #1 ea 11/17/24 [Rx Confirmed 01/17/25] blood sugar diagnostic (Blood Glucose Test strips) #100 ea 12/16/24 [Rx Confirmed 01/17/25] lancets #100 ea 12/16/24 [Rx Confirmed 01/17/25] Intake Visit Data Collection New Patient or Established: Established Patient (seen at [facility] within 3 years) Reason for Visit:: OBC Consent obtained for Telemed Visit: No Seen by Clinical Staff ONLY (RN/MA): No Millinery Blocker Required: No Do You Feel Safe at Home: Yes Authorities Contacted: N/A PCP or OBGYN visit in last 3 months: Yes Date of Last PCP or OBGYN visit: 01/02/25 Hx Now: Yes Are you currently on any form of Control: No Pain Present Currently: No Pain Scale Used: Mccarthy-Peng/Numerical Pain scale:: 0 Smoking Status Smoking Status: Never smoker Questionnaires Covid-19 Vaccine Questionnaire Has patient been vacinated for Covid-19 Have you been vacinated for Covid-19: No PHQ-9 PHQ-2 Over the last 2 weeks, how often have you been bothered by any of the following problems? 1. Little interest or pleasure in doing things: not at all PHQ-9 8. Moving or speaking so slowly that other people could have noticed? - Or the opposite - being so fidgety or restless that you have been moving around a lot more than usual: not at all Source: Developed by Drs. Spike Rogers, Nancy Rogers, Corbin Bean and colleagues, with an educational robert from [employer]. Social History Living Situation History Lives With: Family Housing: House Tobacco History Smoking Status: Never smoker Alcohol History Alcohol Intake: Never Domestic Abuse History Do You Feel Safe at Home: Yes Care OB Visit Log OB Flowsheet Initial Weight: Not Recorded Date -?-?-?-?-?-?-?-?-?-?-?-?- EGA Weight BP Alb Glu CTX Pres Fundal ht FHR Mov Dilation Station Effacement Hx Notes Visit Note 09/13/24 -?-?-?-?-?-?-?-?-?-?-?-?- 14w 0d 82.667 kg 120/78 145 Nathalie Elizabeth, , at approximately 14 weeks gestation by LMP 06/07/2024, presents for initial visit. No N/V/B. No KAISER/VS, Epig/RUQ pain. Reports no current symptoms or complicat ions. Denies nausea, vomiting, spotting, or bleeding. Obstetric history notable for 4 prior un complicated vaginal deliveries, all resulting in living children. Currently taking vitamins. Bedside ultrasound: Gestational sac visu alized; parts not seen. ? Assessment & Plan: Nathalie Elizabeth is a at approximate ly 14w0d gestation presenting for new OB visit. Bedside ultrasound concerning for intrauterine of uncertain viability. Intrauterine of uncertain viab ility ?Refer for comprehensive OB ultrasound w ith possible transvaginal imaging ?Defer routine OB labs pending ultrasoun d findings ?Continue vitamins ?Follow up after ultrasound to discuss results and determine further management 09/27/24 -?-?-?-?-?-?-?-?-?-?-?-?- 16w 0d 84.085 kg 113/77 155 active Nathalie Tomlinson, a 39-year-old at approximately 15 weeks gestation, presents for follow-up after a radiology department ultrasound performed on 09/16/2024. Previous poor visualization promp shavon the referral. She denies any current complaints, including contractions, headaches, visual changes, or abdominal pain. The ultrasound confirmed a viable single intrauterine with normal cardiac activity (FHR 155 bpm), ALVAREZ of 7, fundal placenta (grade 1), cervix measuring 5 cm, and both ovaries visualized with axial flow. Estimated weight was 118 grams. Plan: Order comprehensive labs, incl uding genetic screening and gender determination Prescribe -safe allergy medicat ion for allergic rhinitis Schedule next routine follow-up in one month Order routine ultrasound at [facility] in [place] Patient to return today for blood draw and lab collection 10/25/24 -?-?-?-?-?-?-?-?-?-?-?-?- 20w 0d 88.904 kg 114/75 at 20w0d, presents for routine care. Reports recent light bleeding ~1 week ago, no recurrence since. No CTX/LOF/VB today; good FM. Denies KAISER/VC/epigastric pain. PMH notable for GDM in prior . Awaiting MFM scan with Dr. Lee in [place]. FHT 143?147 bpm today, WNL. Plan: Ordered 1-hr glucose test (patient to fast 8 hrs), advised pelvic rest (no intercourse, no heavy lifting), increase hydration. Follow up in 4 weeks. Will review MFM results once available. Counseled on labor and preeclampsia warning signs; encouraged movement monitoring and routine care adherence. 11/22/24 -?-?-?-?-?-?-?-?-?-?-?-?- 24w 0d 90.435 kg 117/78 absent cephalic 24 149 active No CTX/LOF/VB, reports good FM. GDM dx with 1hr GTT 176, 3hr GTT with 1hr 183, 2hr 164. Home glucose 126 post-prandial. FHR 149. Continue glucometer use, provide diet instructions, no meds needed. Review logs at next visit. 12/20/24 -?-?-?-?-?-?-?-?-?-?-?-?- 28w 0d 91.626 kg 114/74 absent cephalic 28 151 active no CTX/LOF/VB. fetus active, compliant with GDM diet and monitoring.. no CTX/LOF/VB. fetus active, compliant with GDM diet and monitoring.. sugars at goal 80%, fasting are in range W alk 40 minutes a day. Continue glucose monitoring and working compliance with GDM diet. Increase veggies and proteins. Pay attention movement. Patient has follow-up with MFM in 4 weeks. And return in 2 weeks for OB 01/02/25 -?-?-?-?-?-?-?-?-?-?-?-?- 29w 6d 90.378 kg 120/81 absent cephalic 29 145 active GDM at 29w6d, diet- controlled with normal glucose logs (FBS 90?96), FHR 169?170 bpm, good FM, small umbilical hernia likely from uterine pressure, no CTX. Plan: F/u in 2 wks, reduce glucose checks to fasting and post-largest meal, continue diet control, keep Jan 4 [facility] appt. 01/17/25 -?-?-?-?-?-?-?-?-?-?-?-?- 32w 0d 89.018 kg 113/75 absent cephalic 32 145 active 32w with diet- controlled GDM, FHR 145, active FM, reports recent foot pain managed with Tylenol. Plan: F/u after [facility] on 01/26, continue glucose monitoring and diet, Tylenol =2000 mg/day for foot pain, f/u in 2 weeks. STEFANIA Calculator Estimated Delivery Date Method Current WG Current Estimate 03/14/25 LMP (Certain) 32w 2d Office Procedures OB Clinic LOC & Office Proc's Nursing/Assessment Patient Status: Established Patient OB Clinic Nursing Assessment: Medication Reconciliation, Update PMH in EMR and Vital Signs OB Clinic Coordination of Care: Complex Care and Chronic Disease 1-5, Consent,records obtained, informed consent and Education Simp Pt/Fam Special Needs: Heart tones Established Patient Charge Established Patient Point Assignment: 105 Established Patient Point Charge: EP Level 3 (80-115) Assessment & Plan Diagnosis / Problem List (1) Encounter for supervision of high risk in third trimester, antepartum: Status: Acute (2) Gestational diabetes: Status: Acute
== END 2025-01-17 11:51 | disposition home or self-care (01) ==
LOC: HODSOBC 11:01
PROVIDERS: Supervising Provider Obstetrics & Gynecology; Visit Provider Obstetrics & Gynecology
DX: O09.523 Supervision of elderly multigravida, third trimester (principal); O09.893 Supervision of other high risk pregnancies, third trimester; O24.410 Gestational diabetes mellitus in pregnancy, diet controlled; Z3A.32 32 weeks gestation of pregnancy
CPT/HCPCS: 99213; G0463

== ENCOUNTER 2025-02-09 13:52 | Outpatient (AMB) | payer MEDICAID, SELFPAY ==
[2025-02-09 14:00] VITALS: BP 124/81; PULSE 74; RESP 16; TEMP 36.2; O2SAT 98; BMI 35.4
--- NOTE | 2025-02-09 14:00 | OBCLNT_ITS ---
Vital Signs 02/09/25 14:00 Height 1.59 m Height Method Stated Weight 89.414 kg Weight Measurement Method Standing Scale BMI 35.4 BP 124/81 Blood Pressure Source Automatic Cuff Blood Pressure Location Left Upper Arm Position Sitting Respiration 16 Pulse 74 Pulse Source Monitor Temp 97.2 F Temp Source Oral Pulse Oximetry (%) 98 Oxygen Delivery Method Room Air Allergies/Home Meds Allergies & Medications Allergies No Known Allergies Allergy (Unknown, Verified 02/09/25 14:01) Medication Reconciliation vitamins with calcium no.72-iron 29 mg-folic acid 1 mg tablet ( Plus) 1 tab PO QAM 90 days #90 tabs 09/16/24 [Rx Confirmed 02/09/25] blood-glucose meter #1 ea 11/17/24 [Rx Confirmed 02/09/25] blood sugar diagnostic (Blood Glucose Test strips) #100 ea 12/16/24 [Rx Conf irmed 02/09/25] blood sugar diagnostic (FreeStyle Lite Strips) #100 ea 02/09/25 [Rx] lancets #100 ea 02/09/25 [Rx] Intake Visit Data Collection New Patient or Established: Established Patient (seen at [facility] within 3 years) Reason for Visit:: OBC Seen by Clinical Staff ONLY (RN/MA): No Geoscientist Required: Yes Geoscientist's name/title: ANDRE BERMUDEZ MA Do You Feel Safe at Home: Yes Authorities Contacted: N/A PCP or OBGYN visit in last 3 months: Yes Date of Last PCP or OBGYN visit: 01/17/25 Hx Now: Yes Are you currently on any form of Control: No Pain Present Currently: No Pain Scale Used: Mccarthy-Peng/Numerical Pain scale:: 0 Smoking Status Smoking Status: Never smoker Questionnaires Covid-19 Vaccine Questionnaire Has patient been vacinated for Covid-19 Have you been vacinated for Covid-19: No PHQ-9 PHQ-2 Over the last 2 weeks, how often have you been bothered by any of the following problems? 1. Little interest or pleasure in doing things: not at all 2. Feeling down, depressed, or hopeless: not at all Total score: 0 PHQ-9 3. Trouble falling or staying asleep, or sleeping too much: Not at all 4. Feeling tired or having little energy: Not at all 5. Poor appetite or overeating: Not at all 6. Feeling bad about yourself - or that you are a failure or have let yourself or your family down: Not at all 7. Trouble concentrating on things, such as reading the newspaper or watching television: Not at all 8. Moving or speaking so slowly that other people could have noticed? - Or the opposite - being so fidgety or restless that you have been moving around a lot more than usual: not at all 9. Thoughts that you would be better off or of hurting yourself in some way: Not at all Total score: 0 If you checked off any problems, how difficult have these problems made it for you to do your work, take care of things at home, or get along with other people?: not difficult at all Source: Developed by Drs. Spike Rogers, Nancy Rogers, Corbin Bean and colleagues, with an educational robert from [employer]. Depression screen completed yes Social History Living Situation History Marital Status: Lives With: Family Housing: House Tobacco History Smoking Status: Never smoker Second Hand Smoke Exposure: No Alcohol History Alcohol Intake: Never Domestic Abuse History Do You Feel Safe at Home: Yes Care OB Visit Log OB Flowsheet Initial Weight: Not Recorded Date -?-?-?-?-?-?-?-?-?-?-?-?- EGA Weight BP Alb Glu CTX Pres Fundal ht FHR Mov Dilation Station Effacement Hx Notes Visit Note 09/13/24 -?-?-?-?-?-?-?-?-?-?-?-?- 14w 0d 82.667 kg 120/78 145 Nathalie Elizabeth, , at approximately 14 weeks gestation by LMP 06/07/2024, presents for initial visit. No N/V/B. No KAISER/VS, Epig/RUQ pain. Reports no current symptoms or complicat ions. Denies nausea, vomiting, spotting, or bleeding. Obstetric history notable for 4 prior un complicated vaginal deliveries, all resulting in living children. Currently taking vitamins. Bedside ultrasound: Gestational sac visu alized; parts not seen. ? Assessment & Plan: Nathalie Elizabeth is a at approximate ly 14w0d gestation presenting for new OB visit. Bedside ultrasound concerning for intrauterine of uncertain viability. Intrauterine of uncertain viab ility ?Refer for comprehensive OB ultrasound w ith possible transvaginal imaging ?Defer routine OB labs pending ultrasoun d findings ?Continue vitamins ?Follow up after ultrasound to discuss results and determine further management 09/27/24 -?-?-?-?-?-?-?-?-?-?-?-?- 16w 0d 84.085 kg 113/77 155 active Nathalie Tomlinson, a 39-year-old at approximately 15 weeks gestation, presents for follow-up after a radiology department ultrasound performed on 09/16/2024. Previous poor visualization prompted the referral. She denies any current complaints, including contractions, headaches, visual changes, or abdominal pain. The ultrasound confirmed a viable single intrauterine with normal cardiac activity (FHR 155 bpm), ALVAREZ of 7, fundal placenta (grade 1), cervix measuring 5 cm, and both ovaries visualized with axial flow. Estimated weight was 118 grams. Plan: Order comprehensive labs, incl uding genetic screening and gender determination Prescribe -safe allergy medicat ion for allergic rhinitis Schedule next routine follow-up in one month Order routine ultrasound at [facility] in [place] Patient to return today for blood draw and lab collection 10/25/24 -?-?-?-?-?-?-?-?-?-?-?-?- 20w 0d 88.904 kg 114/75 at 20w0d, presents for routine care. Reports recent light bleeding ~1 week ago, no recurrence since. No CTX/LOF/VB today; good FM. Denies KAISER/VC/epigastric pain. PMH notable for GDM in prior . Awaiting MFM scan with Dr. Lee in [place]. FHT 143?147 bpm today, WNL. Plan: Ordered 1-hr glucose test (patient to fast 8 hrs), advised pelvic rest (no intercourse, no heavy lifting), increase hydration. Follow up in 4 weeks. Will review MFM results once available. Counseled on labor and preeclampsia w arning signs; encouraged movement monitoring and routine care adherence. 11/22/24 -?-?-?-?-?-?-?-?-?-?-?-?- 24w 0d 90.435 kg 117/78 absent cephalic 24 149 active No CTX/LOF/VB, reports good FM. GDM dx with 1hr GTT 176, 3hr GTT with 1hr 183, 2hr 164. Home glucose 126 post-prandial. FHR 149. Continue glucometer use, provide diet instructions, no meds needed. Review logs at next visit. 12/20/24 -?-?-?-?-?-?-?-?-?-?-?-?- 28w 0d 91.626 kg 114/74 absent cephalic 28 151 active no CTX/LOF/VB. fetus active, compliant with GDM diet and monitoring.. no CTX/LOF/VB. fetus active, compliant with GDM diet and monitoring.. sugars at goal 80%, fasting are in range W alk 40 minutes a day. Continue glucose monitoring and working compliance with GDM diet. Increase veggies and proteins. Pay attention movement. Patient has follow-up with MFM in 4 weeks. And return in 2 weeks for OB 01/02/25 -?-?-?-?-?-?-?-?-?-?-?-?- 29w 6d 90.378 kg 120/81 absent cephalic 29 145 active GDM at 29w6d, diet-controlled with normal glucose logs (FBS 90?96), FHR 169?170 bpm, good FM, small umbilical hernia likely from uterine pressure, no CTX. Plan: F/u in 2 wks, reduce glucose checks to fasting and post-largest meal, continue diet control, keep Jan 26 [facility] appt. 01/17/25 -?-?-?-?-?-?-?-?-?-?-?-?- 32w 0d 89.018 kg 113/75 absent cephalic 32 145 active 32w with diet- controlled GDM, FHR 145, active FM, reports recent foot pain managed with Tylenol. Plan: F/u after [facility] U/S on 01/26, continue glucose monitoring and diet, Tylenol =2000 mg/day for foot pain, f/u in 2 weeks. 02/09/25 -?-?-?-?-?-?-?-?-?-?-?-?- 35w 2d 89.414 kg 124/81 absent cephalic 36 140 active - GDM currently managed with diet control. - Recent ultrasound performed on 02/02/20 for follow-up growth and biophysical profile: - Estimated weight: 2860 grams ( 6 pounds, 5 ounces), 93rd percentile - Amniotic Fluid Index (ALVAREZ): 13.3 - Limited anatomy survey within normal limits - Previously noted polydactyly of the left foot not visualized due to position - Fetus in cephalic presentation Return in 1 wk, GBS next appt STEFANIA Calculator Estimated Delivery Date Method Current WG Current Estimate 03/14/25 LMP (Certain) 35w 5d Office Procedures OB Clinic LOC & Office Proc's Nursing/Assessment Patient Status: Established Patient OB Clinic Nursing Assessment: Medication Reconciliation, Update PMH in EMR and Vital Signs OB Clinic Coordination of Care: Education Complex Pt/Fam, Consent,records obtained, informed consent, Lab and Imaging orders, Results/Orders obtained and Staff clarify orders Special Needs: Heart tones Established Patient Charge Established Patient Point Assignment: 115 Established Patient Point Charge: EP Level 3 (80-115) Assessment & Plan Diagnosis / Problem List (1) Encounter for supervision of high risk in third trimester, antepartum: Status: Acute (2) Gestational diabetes: Status: Acute Plan at 35 weeks and 2 days gestation: - at 35 weeks and 2 days gestation. - Recent ultrasound on 02/01/2025 showed estimated weight of 2860 grams (6 pounds, 5 ounces), which is in the 93rd percentile. - Amniotic fluid index (ALVAREZ) was 13.3. - Limited anatomy survey was within normal limits. - Fetus is in cephalic presentation. Plan: - Continue routine care and monitoring. - Follow up on GDM management (diet control). Gestational Diabetes Mellitus (GDM): - Patient has been diagnosed with gestational diabetes mellitus and is currently managing it through diet control. - The effectiveness of this management strategy needs to be evaluated, especially considering the weight is at the 93rd percentile. Plan: - Continue diet control for GDM management. - Monitor growth and maternal blood glucose levels closely. Large for Gestational Age (LGA) Fetus: - Recent ultrasound shows estimated weight at the 93rd percentile, indicating a large for gestational age fetus. - This finding may be related to the patient's GDM and requires close monitoring. Plan: - Continue regular growth scans to monitor size. - Discuss potential implications of LGA fetus with patient, including possible delivery considerations. Suspected Polydactyly: - Previously noted polydactyly of the left foot could not be visualized in the recent ultrasound due to position. - This finding requires follow-up to confirm or rule out the anomaly. Plan: - Schedule follow-up ultrasound to attempt visualization of left foot. - Discuss potential implications and management options with patient if polydactyly is confirmed.
== END 2025-02-09 14:35 | disposition home or self-care (01) ==
LOC: HODSOBC 13:52
PROVIDERS: Supervising Provider Obstetrics & Gynecology; Visit Provider Obstetrics & Gynecology
DX: O09.523 Supervision of elderly multigravida, third trimester (principal); O09.893 Supervision of other high risk pregnancies, third trimester; O24.410 Gestational diabetes mellitus in pregnancy, diet controlled; O36.63X0 Maternal care for excessive fetal growth, third trimester, not applicable or unspecified; O35.HXX0 Maternal care for other (suspected) fetal abnormality and damage, fetal lower extremities anomalies, not applicable or unspecified; Z3A.35 35 weeks gestation of pregnancy
CPT/HCPCS: 99213; G0463

== ENCOUNTER 2025-02-23 05:37 | Observation (INO) | payer MEDICAID, SELFPAY ==
[2025-02-23] VITALS (42 sets, daily range): BP systolic 121–134; BP diastolic 85–93; PULSE 59–87; RESP 18–99; TEMP 36.5; O2SAT 82–100; BMI 34.7
== END 2025-02-23 08:35 | disposition home or self-care (01) ==
PROVIDERS: Admitting Provider Obstetrics & Gynecology; Visit Provider Obstetrics & Gynecology
DX: O47.1 False labor at or after 37 completed weeks of gestation (principal); Z3A.37 37 weeks gestation of pregnancy
CPT/HCPCS: 59025; 59899

== ENCOUNTER 2025-02-23 10:58 | Inpatient (IN) | payer MEDICAID, SELFPAY ==
[2025-02-23] VITALS (22 sets, daily range): BP systolic 107–152; BP diastolic 58–93; PULSE 63–96; RESP 16–20; TEMP 36.6–36.9; O2SAT 97–100; BMI 34.6; BMI 34.7
--- NOTE | 2025-02-23 12:02 | ESHP_ITS ---
Documentation for date of: 02/23/25 OB Labor/Induct. HPI History of Present Illness Chief complaint: Labor : 5 Para: 4 Term pregnancies: 4 pregnancies: 0 Living children: 4 History of Abortions: Spontaneous and Elective: 0 History of Vaginal deliveries: 4 History of sections: No History of : No STEFANIA: 03/14/25 Gestational Age (weeks): 37 Gestational Age (days): 2 History of present illness: Patient is a 39-year-old 5 para 4 who presented to labor and delivery triage with contractions every 3 to 5 minutes. Patient received care at the [facility] clinic. The current is significant for diet-controlled gestational diabetes. Patient denies any leakage of fluid or vaginal bleeding and reports adequate movements. She was in triage earlier today and she was dilated to 3.5 cm. Her cervical exam is the same at this time Review of Systems Review of Systems Systems Reviewed: All systems reviewed, normal except as documented Past Medical History Surgical History SURGICAL: Negative Section Meds Home Medications and Allergies Allergies Allergy/AdvReac Type Severity Reaction Status Date / Time No Known Allergies Allergy Unknown Verified 02/09/25 14:01 OB Exam Physical Exam Vital signs: Pulse BP 83 152/93 H 02/23/25 11:31 02/23/25 11:31 Constitutional Constitutional: no acute distress Routine HEENT Exam Head: Present normocephalic and atraumatic Eye: Present EOMI and PERRL ENT: Present mucous membranes moist Routine Neck Exam Neck: Present supple and trachea midline Routine Cardiovascular Exam Cardiovascular: Present RRR Routine Abdominal Exam Abdominal: Present soft and normoactive bowel sounds Detailed Labor and Delivery Exam Dilation (cm): 4 Effacement (%): 50 Cervix position: mid station: -3 Routine Extremities Exam Extremities: Present full ROM Routine Skin Exam Skin: Present intact, dry and warm Routine Neurological Exam Neurological: Present alert, oriented X3 and CN II-XII intact Routine Psychiatric Exam Psychiatric: Present normal affect and normal thought process OB Assessment & Plan Assessment and Plan (1) Encounter for supervision of high risk in third trimester, antepartum: Status: Acute Assessment and plan: Admit to inpatient status labor and delivery IV access, LR at 125 cc/h Labs to include CBC, type and screen, RPR, CMP, uric acid, LDH and urine protein creatinine ratio GBS unknown, start prophylaxis Epidural when desired Close monitoring of maternal blood pressure as well as maternal- tracing Expectant management for now Anticipate vaginal delivery (2) Gestational diabetes: Status: Acute
[2025-02-23 12:08] LABS: Basophils # (Auto) 0.0 Thou/mm3 (0.0-0.2); Basophils % (Auto) 0 % (0-2.5); Eosinophils # (Auto) 0.0 Thou/mm3 (0.0-0.5); Eosinophils % (Auto) 0 % (0-10); Hematocrit 40.4 % (36.0-46.0); Hemoglobin 13.7 g/dL (12.0-16.0); Immature Granulocytes Auto 0.03 Thou/mm3 (0.00-0.00); Lymphocytes # (Auto) 1.3 Thou/mm3 (1.0-4.8); Lymphocytes % (Auto) 13 % (10-50); Mean Corpuscular HGB Conc 33.9 g/dl (31.0-37.0); Mean Corpuscular Hemoglobin 27.3 pg (25.0-35.0); Mean Corpuscular Volume 81 fL (80-100); Monocytes # (Auto) 0.5 Thou/mm3 (0.0-0.8); Monocytes % (Auto) 5 % (0-12); Neutrophils # (Auto) 8.0 Thou/mm3 (1.8-7.7); Neutrophils % (Auto) 81 % (37-80); Nucleated Red Blood Cell # 0.00 Thou/mm3 (0.00-0.00); Nucleated Red Blood Cell % 0 /100 WBC (0); Platelet Count 174 Thou/mm3 (140-440); RDW Standard Deviation 38.7 fL (36.4-46.3); Red Blood Count 5.02 Miln/mm3 (4.00-5.20); White Blood Count 9.8 Thou/mm3 (3.6-11.0)
[2025-02-23] MEDS: fentaNYL CIT INJ 50 mCg/ML AMP 2ML 100 MCG IVP (12:09)
[2025-02-23] MEDS: MINERAL OIL 30 ML UDC TOP (12:25)
[2025-02-23] MEDS: OXYTOCIN in NS 20 units 20 UNIT/1,000 ML BAG 125 UNIT IV (12:31)
[2025-02-23] MEDS: METHYLERGONOVINE INJ 0.2 MG/ML VIAL IM (12:37)
[2025-02-23 12:46] LABS: Syphilis Nonreactive (Nonreactive)
--- NOTE | 2025-02-23 12:49 | PD.LDDELS ---
Data (Juan) Data Hx Section: No : 5 Term: 4 : 0 Livin Abortions: Spontaneous & Theraputic: 0 Delivery Data (Juan) Labor Data Initiation of labor: Spontaneous Induction/Augmentation Agent: None ROM date: 02/23/25 ROM time: 12:01 Amniotic membrane rupture type: Spontaneous Amniotic fluid description: Clear Delivery Data Onset of labor date: 02/23/25 Onset of labor time: 10:30 Complete dilation date: 02/23/25 Complete dilation time: 12:25 delivery date: 02/23/25 delivery time: 12:30 Placenta delivery date: 02/23/25 Placenta delivery time: 12:32 Stage 1 total time: Labor - Stage 1 Duration 1 hours and 55 minutes Delivered by: Sarah Dumont ([facility]) Delivery Method Delivery method: Normal Vaginal Delivery Presentation: Vertex Anesthesia Type Anesthesia Type: None Episiotomy Episiotomy description: None Data (Juan) Data order: 1 's gender: Female
[2025-02-23] MEDS: IBUPROFEN TAB 400 MG TABLET 800 MG PO (13:15)
[2025-02-24 03:29] VITALS: BP 103/67; PULSE 67; RESP 17; TEMP 36.7; O2SAT 97
[2025-02-24 05:47] LABS: Basophils # (Auto) 0.0 Thou/mm3 (0.0-0.2); Basophils % (Auto) 0 % (0-2.5); Eosinophils # (Auto) 0.0 Thou/mm3 (0.0-0.5); Eosinophils % (Auto) 0 % (0-10); Hematocrit 37.2 % (36.0-46.0); Hemoglobin 12.3 g/dL (12.0-16.0); Immature Granulocytes Auto 0.03 Thou/mm3 (0.00-0.00); Lymphocytes # (Auto) 2.0 Thou/mm3 (1.0-4.8); Lymphocytes % (Auto) 23 % (10-50); Mean Corpuscular HGB Conc 33.1 g/dl (31.0-37.0); Mean Corpuscular Hemoglobin 27.3 pg (25.0-35.0); Mean Corpuscular Volume 83 fL (80-100); Monocytes # (Auto) 0.7 Thou/mm3 (0.0-0.8); Monocytes % (Auto) 8 % (0-12); Neutrophils # (Auto) 5.9 Thou/mm3 (1.8-7.7); Neutrophils % (Auto) 68 % (37-80); Nucleated Red Blood Cell # 0.00 Thou/mm3 (0.00-0.00); Nucleated Red Blood Cell % 0 /100 WBC (0); Platelet Count 158 Thou/mm3 (140-440); RDW Standard Deviation 39.4 fL (36.4-46.3); Red Blood Count 4.50 Miln/mm3 (4.00-5.20); White Blood Count 8.7 Thou/mm3 (3.6-11.0)
[2025-02-24 08:00] VITALS: BP 99/65; PULSE 68; RESP 13; TEMP 36.7; O2SAT 97
[2025-02-24] MEDS: DOCUSATE SOD 100 MG CAPSULE PO (08:14)
[2025-02-24] MEDS: ACETAMINOPHEN 325 MG TABLET PO (08:14)
--- NOTE | 2025-02-24 08:23 | ESPR_ITS ---
Subjective Subjective Interval history: Delivery type: Patient doing well this morning. No acute complaints. Ambulating, tolerating p.o. and voiding without difficulty. HTN/Pre-Eclampsia screen: No chest pain, shortness of breath, headache, visual changes, epigastric or right upper quadrant pain. Breast-feeding, lochia diminishing. Bowel: Flatus+/ BM+ Exam Vital Signs Temp Pulse Resp BP Pulse Ox O2 Del Method 98.0 F 67 17 103/67 97 Room Air 02/24/25 03:29 02/24/25 03:29 02/24/25 03:29 02/24/25 03:29 02/24/25 03:29 02/24/25 03:29 Constitutional Constitutional: no acute distress Routine HEENT Exam Head: Present normocephalic and atraumatic Eye: Present EOMI and PERRL ENT: Present mucous membranes moist Routine Neck Exam Neck: Present supple and trachea midline Routine Respiratory Exam Respiratory: Present chest non-tender, lungs clear, normal breath sounds and no resp distress Routine Cardiovascular Exam Cardiovascular: Present RRR Routine Abdominal Exam Abdominal: Present soft and normoactive bowel sounds Routine Extremities Exam Extremities: Present full ROM Routine Skin Exam Skin: Present intact, dry and warm Routine Neurological Exam Neurological: Present alert, oriented X3 and CN II-XII intact Routine Psychiatric Exam Psychiatric: Present normal affect and normal thought process Objective Labs 02/24/25 04:40 Labs: Laboratory Results - last 24 hr 02/23/25 02/24/25 11:50 04:40 WBC 9.8 8.7 RBC 5.02 4.50 Hgb 13.7 12.3 Hct 40.4 37.2 MCV 81 83 MCH 27.3 27.3 MCHC 33.9 33.1 RDW Std Deviation 38.7 39.4 Plt Count 174 158 Neut % (Auto) 81 H 68 Lymph % (Auto) 13 23 Banner % (Auto) 5 8 Eos % (Auto) 0 0 Baso % (Auto) 0 0 Neut # (Auto) 8.0 H 5.9 Lymph # (Auto) 1.3 2.0 Banner # (Auto) 0.5 0.7 Eos # (Auto) 0.0 0.0 Baso # (Auto) 0.0 0.0 Immature Gran # (Auto) 0.03 H 0.03 H Absolute Nucleated RBC 0.00 0.00 Immature Gran % 0 0 Nucleated RBC % 0 0 Syphilis Serology Nonreactive Blood Type A Positive Antibody Screen NEGATIVE Blood Bank Wristband ID Yes Assessment & Plan Problem List (1) Encounter for supervision of high risk in third trimester, antepartum: Status: Acute Assessment and plan: 1. Continue routine /post-op care 2. Labs reviewed, cbc appropriate 3. Remove dressing/Dye 4. Encourage to ambulate, shower 5. Encourage PO intake, breast feeding 6. Anticipate discharge home after she completes 24 hours from delivery (2) Gestational diabetes: Status: Acute Time Spent With Patient Time: Total time spent is greater than 50% in coordination of care (as documented) at patient's floor/unit and/or counseling patient:
--- NOTE | 2025-02-24 08:25 | ESDS_ITS ---
DS: Providers Provider Date of admission: 02/23/25 11:19 Primary care physician: Physician No Primary/Family Admitting Provider: Marley Bates CNM Attending Provider on Admission: Subhash Mcpherson MD Consults: 02/23/25 14:19 Referral Routine Comment: Attending Provider on DC: Subhash Mcpherson MD Discharging Provider: Subhash Mcpherson MD DS: Diagnosis Discharge Diagnosis (1) Encounter for supervision of high risk in third trimester, antepartum: Status: Acute (2) Gestational diabetes: Status: Acute Problem List Completed Was Problem List Reviewed/Reconciled?: Yes Summary/Hosp Course Brief History: Patient is a 39-year-old 5 para 4 who presented to labor and delivery triage with contractions every 3 to 5 minutes. Patient received care at the [facility] [facility] [facility] clinic. The current is significant for diet-controlled gestational diabetes. Patient denies any leakage of fluid or vaginal bleeding and reports adequate movements. She was in triage earlier today and she was dilated to 3.5 cm. Her cervical exam is the same at this time Peripartum Data Delivery Method: Normal Vaginal Delivery Episiotomy Description: None Time Spent with Patient Time attestation: Total time spent providing and/or coordinating discharge services: Exam Vital Signs Temp Pulse Resp BP Pulse Ox O2 Del Method 98.0 F 67 17 103/67 97 Room Air 02/24/25 03:29 02/24/25 03:29 02/24/25 03:29 02/24/25 03:29 02/24/25 03:29 02/24/25 03:29 Discharge Plan Plan Patient Disposition: HOME (Self Care) Patient condition on transfer: Stable Prescriptions/Referrals Prescriptions/Med Rec: New ibuprofen 400 mg Tablet 800 mg PO Q8HR PRN (Reason: Pain Scale 4-6 (Moderate) 10 Days Qty: 40 0RF docusate sodium 100 mg Capsule 100 mg PO QDAY 30 Days Qty: 30 0RF Continued Plus 29 mg iron- 1 mg tablet 1 tab PO QAM 90 Days Qty: 90 2RF Discontinued (DME) FreeStyle Lite Strips Strip See Rx Instructions .Route Qty: 100 6RF Rx Instructions: As directed, 4 times a day (DME) lancets Misc See Rx Instructions miscellaneous .MEDSUPPLY Qty: 100 0RF Rx Instructions: As directed, 4 times a day (DME) blood-glucose meter Kit See Rx Instructions .MEDSUPPLY Qty: 1 0RF Rx Instructions: As directed, 4 times a day (DME) Blood Glucose Test Strip See Rx Instructions miscellaneous .MEDSUPPLY Qty: 100 0RF Rx Instructions: As directed, 4 times a day Referrals: Subhash Mcpherson MD [Physician, [employer]] No Primary/Family,Physician [Primary Care Provider] Patient/Caregiver Discharge Instructions Meds to Beds: Yes Discharge Activity: activity as tolerated Education Materials: After a Vaginal , Pain After Childbirth, Perineum Care After Childbirth, Depression, After Delivery Concerns, Breast Care After Print Language: Romanian Stand Alone Forms: Cassie Award Info., Patient Portal Info Letter Discharge Order Discharge Orders: Discharge (Routine); Ordered 02/24/25 Ordered By: Subhash Mcpherson Planned Discharge Date 02/24/25
--- NOTE | 2025-02-24 08:27 | OBDSUM_ITS ---
Data (Juan) Data Hx Section: No : 5 Term: 4 : 0 Livin Abortions: Spontaneous & Theraputic: 0 Delivery Data (Juan) Labor Data Initiation of labor: Spontaneous Induction/Augmentation Agent: None ROM date: 02/23/25 ROM time: 12:01 Amniotic membrane rupture type: Spontaneous Amniotic fluid description: Clear Delivery Data Onset of labor date: 02/23/25 Onset of labor time: 10:30 Complete dilation date: 02/23/25 Complete dilation time: 12:25 delivery date: 02/23/25 delivery time: 12:30 Placenta delivery date: 02/23/25 Placenta delivery time: 12:32 Stage 1 total time: Labor - Stage 1 Duration 1 hours and 55 minutes Delivered by: Sarah Dumont ([facility]) Delivery nurse: cotavia Madrigal nurse: leeann davis rnc Delivery Driver/Supervisor at delivery: No Support person(s) at delivery: Sister in Law Other staff at delivery: COMMUNITY MUSIC THERAPIST Students [email or web address] j [email or web address] Delivery Method Delivery method: Normal Vaginal Delivery Presentation: Vertex Anesthesia Type Anesthesia Type: None Placenta Placenta delivery description: Manual Removal Cord blood sent to lab: Yes cord blood collection: Cord Blood Type Episiotomy Episiotomy description: None Umbilical Cord cord description: 3 Vessels Data (Juan) Lawton Data order: 1 Lawton's gender: Female Identification band number: [id number] weight (gms): 3440 g Weight (pounds): 7 lbs and 9.3 ozs length: 50.8 cm 1 minute: 8 5 minutes: 9
[2025-02-24 12:00] VITALS: BP 107/72; PULSE 75; RESP 16; TEMP 36.8; O2SAT 97
[2025-02-24 16:00] VITALS: BP 105/72; PULSE 73; RESP 18; TEMP 36.9; O2SAT 98
== END 2025-02-24 16:30 | disposition home or self-care (01) | DRG 560 ==
LOC: S4SX 12:53 → S4NX 15:03
PROVIDERS: Admitting Provider Advanced Practice Midwife; Visit Provider Obstetrics & Gynecology
DX: O24.420 Gestational diabetes mellitus in childbirth, diet controlled (principal); Z3A.37 37 weeks gestation of pregnancy; Z37.0 Single live birth
CPT/HCPCS: 36415; 85025; 86780; 86850; 86900; 86901; J2210; J2590; J3010; A9270

== ENCOUNTER 2025-03-07 15:27 | Outpatient (AMB) | payer MEDICAID, SELFPAY ==
[2025-03-07 16:05] VITALS: BP 126/79; PULSE 75; RESP 16; TEMP 36.6; O2SAT 96; BMI 32.8
--- NOTE | 2025-03-07 16:05 | AMB.OBPP ---
Vital Signs 03/07/25 16:05 Height 1.6 m Height Method Stated Weight 83.971 kg Weight Measurement Method Standing Scale BMI 32.8 BP 126/79 Blood Pressure Source Automatic Cuff Blood Pressure Location Left Upper Arm Position Sitting Respiration 16 Pulse 75 Pulse Source Monitor Temp 97.8 F Temp Source Oral Pulse Oximetry (%) 96 Oxygen Delivery Method Room Air Allergies/Home Meds Allergies & Medications Allergies No Known Allergies Allergy (Unknown, Verified 03/07/25 16:06) Medication Reconciliation vitamins with calcium no.72-iron 29 mg-folic acid 1 mg tablet ( Plus) 1 tab PO QAM 90 days #90 tabs 09/16/24 [Rx Confirmed 03/07/25] docusate sodium 100 mg capsule 100 mg PO QDAY 30 days #30 caps 02/24/25 [Rx Confirmed 03/07/25] Intake Visit Data Collection New Patient or Established: Established Patient (seen at [facility] within 3 years) Reason for Visit:: Seen by Clinical Staff ONLY (RN/MA): No Plastic Fixture Builder Required: Yes Plastic Fixture Builder's name/title: ANDRE BERMUDEZ Do You Feel Safe at Home: Yes Authorities Contacted: N/A PCP or OBGYN visit in last 3 months: Yes Hx Now: No Are you currently on any form of Control: No Pain Present Currently: No Pain Scale Used: Mccarthy-Peng/Numerical Pain scale:: 0 Smoking Status Smoking Status: Never smoker BUSINESS DEVELOPMENT SALES EXECUTIVE: Past Medical History Past Medical History: No Hx Neurological Disorders, No Hx Breast Cancer, No Hx Cardiac Disorders, No Hx Cancer, No Hx Blood Disorders, No Hx Gastrointestinal Disorders, No Hx Renal Disease, No Hx Diabetes Mellitus Type 1, No Hx Diabetes Mellitus Type 2 (gdm gestational), No Hx Tubal Ligation and No Hx Hysterectomy Questionnaires Covid-19 Vaccine Questionnaire Has patient been vacinated for Covid-19 Have you been vacinated for Covid-19: Yes Social History Living Situation History Lives With: Family Housing: House Tobacco History Smoking Status: Never smoker Second Hand Smoke Exposure: No Alcohol History Alcohol Intake: Never Domestic Abuse History Do You Feel Safe at Home: Yes EPDS - PP Depression Screening [place] Pospartum Depression Screen I have been able to laugh and see the funny side of things: (0) As much as I always could I have looked forward with enjoyment to things: (0) As much as I ever did I have blamed myself unnecessarily when things went wrong: (0) No, never I have been anxious or worried for no good reason: (0) No, not at all I have felt scared or panicky for no very good reason: (0) No, not at all Things have been getting on top of me: (0) No, I have been coping as well as ever I have been so unhappy that I have had difficulty sleeping: (0) No, not at all I have felt sad or miserable: (0) No, not at all I have been so unhappy that I have been crying: (0) No, never The thought of harming myself has occurred to me: (0) Never EPDS completed yes Care OB Visit Log OB Flowsheet Initial Weight: Not Recorded Date <del>?</del> EGA Weight BP Alb Glu CTX Pres Fundal ht FHR Mov Dilation Station Effacement Hx Notes Visit Note 09/13/24 <del>?</del> 14w 0d 82.667 kg 120/78 145 Nathalie Elizabeth, , at approximately 14 weeks gestation by LMP 06/07/2024, presents for initial visit. No N/V/B. No KAISER/VS, Epig/RUQ pain. Reports no current symptoms or complications. Denies nausea, vomiting, spotting, or bleeding. Obstetric history notable for 4 prior uncomplicated vaginal deliveries, all resulting in living children. Currently taking vitamins. Bedside ultrasound: Gestational sac visualized; parts not seen. ? Assessment & Plan: Nathalie Elizabeth is a at approximately 14w0d gestation presenting for new OB visit. Bedside ultrasound concerning for intrauterine of uncertain viability. Intrauterine of uncertain viability ?Refer for comprehensive OB ultrasound with possible transvaginal imaging ?Defer routine OB labs pending ultrasound findings ?Continue vitamins ?Follow up after ultrasound to discuss results and determine further management 09/27/24 <del>?</del> 16w 0d 84.085 kg 113/77 155 active Nathalie Tomlinson, a 39-year-old at approximately 15 weeks gestation, presents for follow-up after a radiology department ultrasound performed on 09/16/2024. Previous poor visualization prompted the referral. She denies any current complaints, including contractions, headaches, visual changes, or abdominal pain. The ultrasound confirmed a viable single intrauterine with normal cardiac activity (FHR 155 bpm), ALVAREZ of 7, fundal placenta (grade 1), cervix measuring 5 cm, and both ovaries visualized with axial flow. Estimated weight was 118 grams. Plan: Order comprehensive labs, including genetic screening and gender determination Prescribe -safe allergy medication for allergic rhinitis Schedule next routine follow-up in one month Order routine ultrasound at [facility] in [place] Patient to return today for blood draw and lab collection 10/25/24 <del>?</del> 20w 0d 88.904 kg 114/75 at 20w0d, presents for routine care. Reports recent light bleeding ~1 week ago, no recurrence since. No CTX/LOF/VB today; good FM. Denies KAISER/VC/epigastric pain. PMH notable for GDM in prior . Awaiting MFM scan with Dr. Lee in [place]. FHT 143?147 bpm today, WNL. Plan: Ordered 1-hr glucose test (patient to fast 8 hrs), advised pelvic rest (no intercourse, no heavy lifting), increase hydration. Follow up in 4 weeks. Will review MFM results once available. Counseled on labor and preeclampsia warning signs; encouraged movement monitoring and routine care adherence. 11/22/24 <del>?</del> 24w 0d 90.435 kg 117/78 absent cephalic 24 149 active No CTX/LOF/VB, reports good FM. GDM dx with 1hr GTT 176, 3hr GTT with 1hr 183, 2hr 164. Home glucose 126 post-prandial. FHR 149. Continue glucometer use, provide diet instructions, no meds needed. Review logs at next visit. 12/20/24 <del>?</del> 28w 0d 91.626 kg 114/74 absent cephalic 28 151 active no CTX/LOF/VB. fetus active, compliant with GDM diet and monitoring.. no CTX/LOF/VB. fetus active, compliant with GDM diet and monitoring.. sugars at goal 80%, fasting are in range Walk 40 minutes a day. Continue glucose monitoring and working compliance with GDM diet. Increase veggies and proteins. Pay attention movement. Patient has follow-up with MFM in 4 weeks. And return in 2 weeks for OB 01/02/25 <del>?</del> 29w 6d 90.378 kg 120/81 absent cephalic 29 145 active GDM at 29w6d, diet-controlled with normal glucose logs (FBS 90?96), FHR 169?170 bpm, good FM, small umbilical hernia likely from uterine pressure, no CTX. Plan: F/u in 2 wks, reduce glucose checks to fasting and post-largest meal, continue diet control, keep Jan 26 [facility] appt. 01/17/25 <del>?</del> 32w 0d 89.018 kg 113/75 absent cephalic 32 145 active 32w with diet-controlled GDM, FHR 145, active FM, reports recent foot pain managed with Tylenol. Plan: F/u after [facility] U/S on 01/26, continue glucose monitoring and diet, Tylenol =2000 mg/day for foot pain, f/u in 2 weeks. 02/09/25 <del>?</del> 35w 2d 89.414 kg 124/81 absent cephalic 36 140 active - GDM currently managed with diet control. - Recent ultrasound performed on 02/01/2025 for follow-up growth and biophysical profile: - Estimated weight: 2860 grams (6 pounds, 5 ounces), 93rd percentile - Amniotic Fluid Index (ALVAREZ): 13.3 - Limited anatomy survey within normal limits - Previously noted polydactyly of the left foot not visualized due to position - Fetus in cephalic presentation Return in 1 wk, GBS next appt STEFANIA Calculator Estimated Delivery Date Method Current WG Current Estimate 03/14/25 LMP (Certain) 39w 1d HPI Interval History: Nathalie Best presents for her visit following delivery on February 23, 2025. Her was significant for diet-controlled gestational diabetes mellitus (GDM). She reports that she is healing well and did not require stitches after delivery. She is currently . The patient confirms that she did not have diabetes prior to and is not currently requiring any diabetic treatments. She inquires about opening disability benefits and expresses interest in tubal ligation procedures for future consideration. She has an obstetric history of G1 T1 L1. Her recent delivery was on February 23, 2025 via spontaneous vaginal delivery without episiotomy or lacerations. The was complicated by diet-controlled gestational diabetes mellitus. She is currently . ROS: Negative except as stated above, limited to BUSINESS DEVELOPMENT SALES EXECUTIVE and pertinent complaints. Exam General General Appearance: alert, in no apparent distress and healthy appearing Head Head exam: atraumatic Neck Neck exam: Present normal inspection and trachea midline Chest Chest inspection: Present normal inspection and symmetric chest wall rise External exam: Present normal external exam; Absent tenderness Neuro Neurological exam: Present oriented X3 Psych Psychiatric exam: Present normal affect and normal mood Office Procedures OBC Clinic LOC & Office Proc's Nursing/Assessment Patient Status: Established Patient OB Clinic Nursing Assessment: Medication Reconciliation, Update PMH in EMR and Vital Signs OB Clinic Coordination of Care: Complex Care and Chronic Disease 1-5, Consent,records obtained, informed consent, Education Simp Pt/Fam, 1 Ins Authorization, Lab and Imaging orders, Results/Orders obtained and Staff clarify orders Established Patient Charge Established Patient Point Assignment: 120 Established Patient Point Charge: EP Level 4 (120-155) Assessment & Plan Diagnosis / Problem List (1) Routine Follow-Up: Plan Status: - Patient delivered on February 23, 2025, approximately 12 days ago. - Reports healing well without complications with no sutures required during delivery. - Currently without reported issues. Plan: - Complete disability forms as requested by patient. - Patient to obtain both standard disability and -specific forms. - Patient will complete her portion of forms and return for physician completion. - Follow-up appointment scheduled in 2 months. History of Gestational Diabetes Mellitus: - Patient had diet-controlled gestational diabetes mellitus during recent . - No history of diabetes prior to . - Currently not requiring any diabetic treatments . Plan: - Order 2-hour 100-gram glucose tolerance test (CPT 17497). - Test to be completed at 2 months prior to follow-up visit. - Glucose tolerance test order provided today. Tubal Ligation Request: - Patient requesting tubal ligation. - Currently too early as uterus and reproductive organs remain enlarged and need time to return to normal size. Plan: - Wait 3 months before initiating tubal ligation process. - Discuss tubal ligation options at next visit. - If concurrent surgical needs arise, coordinate combined procedures with surgery colleague. (FP) Tobacco Smoking Status: Never smoker
== END 2025-03-07 16:19 | disposition home or self-care (01) ==
LOC: HODSOBC 15:27
PROVIDERS: Supervising Provider Obstetrics & Gynecology; Visit Provider Obstetrics & Gynecology
DX: Z39.2 Encounter for routine postpartum follow-up (principal); Z39.1 Encounter for care and examination of lactating mother
CPT/HCPCS: 99214; G0463

== ENCOUNTER 2025-05-19 10:21 | Outpatient (AMB) | payer MEDICAID, SELFPAY ==
--- NOTE | 2025-05-19 10:28 | AMBOBPPN_ITS ---
Allergies/Home Meds Allergies & Medications Allergies No Known Allergies Allergy (Unknown, Verified 05/19/25 10:39) Medication Reconciliation vitamins with calcium no.72-iron 29 mg-folic acid 1 mg tablet ( Plus) 1 tab PO QAM 90 days #90 tabs 09/16/24 [Rx Confirmed 05/19/25] Intake Visit Data Collection New Patient or Established: Established Patient (seen at [facility] within 3 years) Reason for Visit:: Seen by Clinical Staff ONLY (RN/MA): No Legal Executive Assistant Required: Yes Legal Executive Assistant's name/title: ANDRE BERMUDEZ MA Do You Feel Safe at Home: Yes Authorities Contacted: N/A PCP or OBGYN visit in last 3 months: Yes Date of Last PCP or OBGYN visit: 02/24/25 Hx Now: No Are you currently on any form of Control: No Pain Present Currently: No Pain Scale Used: Mccarthy-Peng/Numerical Pain scale:: 0 Smoking Status Smoking Status: Never smoker Immunizations Flu Vaccine in the Last 12 Months: No Flu Vaccine Exclusion Criteria: No Exclusion Criteria WAISTLINE JOINER: Past Medical History Past Medical History: No Hx Neurological Disorders, No Hx Breast Cancer, No Hx Cardiac Disorders, No Hx Cancer, No Hx Blood Disorders, No Hx Gastrointestinal Disorders, No Hx Renal Disease, No Hx Diabetes Mellitus Type 1, No Hx Diabetes Mellitus Type 2 (gdm gestational), No Hx Tubal Ligation and No Hx Hysterectomy Questionnaires Covid-19 Vaccine Questionnaire Has patient been vacinated for Covid-19 Have you been vacinated for Covid-19: Yes Social History Living Situation History Marital Status: Single Lives With: Family Housing: House Tobacco History Smoking Status: Never smoker Second Hand Smoke Exposure: No Alcohol History Alcohol Intake: Never Domestic Abuse History Do You Feel Safe at Home: Yes EPDS - PP Depression Screening [place] Pospartum Depression Screen I have been able to laugh and see the funny side of things: (0) As much as I always could I have looked forward with enjoyment to things: (0) As much as I ever did I have blamed myself unnecessarily when things went wrong: (0) No, never I have been anxious or worried for no good reason: (0) No, not at all I have felt scared or panicky for no very good reason: (0) No, not at all Things have been getting on top of me: (0) No, I have been coping as well as ever I have been so unhappy that I have had difficulty sleeping: (0) No, not at all I have felt sad or miserable: (0) No, not at all I have been so unhappy that I have been crying: (0) No, never The thought of harming myself has occurred to me: (0) Never Total Score: EPDS Score: Referral is indicated for score of 9 or more, suicidal, or if provider believes patient is depressed regardless of score.: 0 EPDS completed yes Care OB Visit Log OB Flowsheet Initial Weight: Not Recorded Date -?-?-?-?-?-?-?-?-?-?--?-?- EGA Weight BP Alb Glu CTX Pres Fundal ht FHR Mov Dilation Station Effacement Hx Notes Visit Note 09/13/24 -?-?-?-?-?-?-?-?-?-?-?-?- 14w 0d 82.667 kg 120/78 145 Nathalie Elizabeth, , at approximately 14 weeks gestation by LMP 06/07/2024, presents for initial visit. No N/V/B. No KAISER/VS, Epig/RUQ pain. Reports no current symptoms or complicat ions. Denies nausea, vomiting, spotting, or bleeding. Obstetric history notable for 4 prior un complicated vaginal deliveries, all resulting in living children. Currently taking vitamins. Bedside ultrasound: Gestational sac visu alized; parts not seen. ? Assessment & Plan: Nathalie Elizabeth is a at approximate ly 14w0d gestation presenting for new OB visit. Bedside ultrasound concerning for intrauterine of uncertain viability. Intrauterine of uncertain viab ility ?Refer for comprehensive OB ultrasound w ith possible transvaginal imaging ?Defer routine OB labs pending ultrasoun d findings ?Continue vitamins ?Follow up after ultrasound to discuss results and determine further management 09/27/24 -?-?-?-?-?-?-?-?-?-?--?-?- 16w 0d 84.085 kg 113/77 155 active Nathalie Tomlinson, a 39-year-old at approximately 15 weeks gestation, presents for follow-up after a radiology department ultrasound performed on 09/16/2024. Previous poor visualization prompted the referral. She denies any current complaints, including contractions, headaches, visual changes, or abdominal pain. The ultrasound confirmed a viable single intrauterine with normal cardiac activity (FHR 155 bpm), ALVAREZ of 7, fundal placenta (grade 1), cervix measuring 5 cm, and both ovaries visualized with axial flow. Estimated weight was 118 grams. Plan: Order comprehensive labs, incl uding genetic screening and gender determination Prescribe -safe allergy medicat ion for allergic rhinitis Schedule next routine follow-up in one month Order routine ultrasound at [facility] in [place] Patient to return today for blood draw and lab collection 10/25/24 -?-?-?-?-?-?-?-?-?-?-?-?- 20w 0d 88.904 kg 114/75 at 20w0d, presents for routine care. Reports recent light bleeding ~1 week ago, no recurrence since. No CTX/LOF/VB today; good FM. Denies KAISER/VC/epigastric pain. PMH notable for GDM in prior . Awaiting MFM scan with Dr. Lee in [place]. FHT 143?147 bpm today, WNL. Plan: Ordered 1-hr glucose test (patient to fast 8 hrs), advised pelvic rest (no intercourse, no heavy lifting), increase hydration. Follow up in 4 weeks. Will review MFM results once available. Counseled on labor and preeclampsia warning signs; encouraged movement monitoring and routine care adherence. 11/22/24 -?-?-?-?-?--?-?-?-?-?-?-?- 24w 0d 90.435 kg 117/78 absent cephalic 24 149 active No CTX/LOF/VB, reports good FM. GDM dx with 1hr GTT 176, 3hr GTT with 1hr 183, 2hr 164. Home glucose 126 post-prandial. FHR 149. Continue glucometer use, provide diet instructions, no meds needed. Review logs at next visit. 12/20/24 -?-?-?-?-?-?-?-?-?-?-?-?- 28w 0d 91.626 kg 114/74 absent cephalic 28 151 active no CTX/LOF/VB. fetus active, compliant with GDM diet and monitoring.. no CTX/LOF/VB. fetus active, compliant with GDM diet and monitoring.. sugars at goal 80%, fasting are in range W alk 40 minutes a day. Continue glucose monitoring and working compliance with GDM diet. Increase veggies and proteins. Pay attention movement. Patient has follow-up with MFM in 4 weeks. And return in 2 weeks for OB 01/02/25 -?-?-?-?-?-?-?-?-?-?-?-?- 29w 6d 90.378 kg 120/81 absent cephalic 29 145 active GDM at 29w6d, diet- controlled with normal glucose logs (FBS 90?96), FHR 169?170 bpm, good FM, small umbilical hernia likely from uterine pressure, no CTX. Plan: F/u in 2 wks, reduce glucose checks to fasting and post-largest meal, continue diet control, keep Jan 26 [facility] appt. 01/17/25 -?-?-?-?-?-?-?-?-?-?-?-?- 32w 0d 89.018 kg 113/75 absent cephalic 32 145 active 32w with diet- controlled GDM, FHR 145, active FM, reports recent foot pain managed with Tylenol. Plan: F/u after [facility] U/S on 01/26, continue glucose monitoring and diet, Tylenol =2000 mg/day for foot pain, f/u in 2 weeks. 02/09/25 -?-?-?-?-?-?-?-?-?-?-?-?- 35w 2d 89.414 kg 124/81 absent cephalic 36 140 active - GDM currently managed with diet control. - Recent ultrasound performed on 02/02/20 for follow-up growth and biophysical profile: - Estimated weight: 2860 grams ( 6 pounds, 5 ounces), 93rd percentile - Amniotic Fluid Index (ALVAREZ): 13.3 - Limited anatomy survey within normal limits - Previously noted polydactyly of the left foot not visualized due to position - Fetus in cephalic presentation Return in 1 wk, GBS next appt STEFANIA Calculator Estimated Delivery Date Method Current WG Current Estimate 03/14/25 LMP (Certain) 49w 3d HPI Interval History: Nathalie Best presents for a follow-up visit after having a normal vaginal delivery. The patient reports that everything is going well and she has healed up appropriately from her delivery. She is currently and denies headaches or other problems. She reports some discomfort around the umbilicus that occurs sometimes rather than always. She denies wanting control at this time. The patient came to complete disability forms and inquire about their status. She has a history of recent delivery via spontaneous vaginal delivery. The patient is currently . ROS: Negative except as stated above, limited to WAISTLINE JOINER and pertinent complaints. Exam General General Appearance: alert, in no apparent distress and healthy appearing Head Head exam: atraumatic Neck Neck exam: Present normal inspection and trachea midline Chest Chest inspection: Present normal inspection and symmetric chest wall rise External exam: Present normal external exam; Absent tenderness Neuro Neurological exam: Present oriented X3 Psych Psychiatric exam: Present normal affect and normal mood Office Procedures OBC Clinic LOC & Office Proc's Nursing/Assessment Patient Status: Established Patient OB Clinic Nursing Assessment: Medication Reconciliation, Update PMH in EMR and Vital Signs OB Clinic Coordination of Care: Complex Care and Chronic Disease 1-5, Consent,records obtained, informed consent, Education Simp Pt/Fam, Lab and Imaging orders, Results/Orders obtained and Staff clarify orders Established Patient Charge Established Patient Point Assignment: 105 Established Patient Point Charge: EP Level 3 (80-115) Assessment & Plan Diagnosis / Problem List (1) Umbilical hernia without obstruction or gangrene: Status: Acute (2) Encounter for routine follow-up: Status: Acute Plan Status: - Status post normal vaginal delivery with appropriate healing. - Currently with no headaches or other complications. - Disability forms completed. Plan: - Disability forms completed and provided to patient. - No further obstetric follow-up required at this time. - Patient may return for future contraceptive needs or routine gynecologic care including Pap smear when due. Umbilical Hernia: - Physical examination reveals palpable umbilical hernia. Plan: - Refer to primary care physician at [facility] to obtain surgical referral for hernia repair.
== END 2025-05-19 10:58 | disposition home or self-care (01) ==
LOC: HODSOBC 10:21
PROVIDERS: Supervising Provider Obstetrics & Gynecology; Visit Provider Obstetrics & Gynecology
DX: Z39.2 Encounter for routine postpartum follow-up (principal); Z39.1 Encounter for care and examination of lactating mother; O99.63 Diseases of the digestive system complicating the puerperium; K42.9 Umbilical hernia without obstruction or gangrene
CPT/HCPCS: 99213; G0463